=== PATIENT | female | born 1955 | race Caucasian/White ===

== ENCOUNTER → 2020-02-03 09:26 | Outpatient (CLI) | payer MEDICARE, SELFPAY ==
--- NOTE | ~2020-02-03 | DEXA_ITS ---
Bone Density Report Name: Catherine Machado Age: 65 Sex: Female Ethnicity: White Date of : 1955 Indication: postmenopausal; screening for osteoporosis; hysterectomy; Referring Provider: Paloma, Yari Study: Bone densitometry was performed. Exam Date: February 03, 2020 Accession number: [id number] Bone Density: Region BMD T-score Z-score Classification AP Spine (L1, L2) 0.931 -0.4 1.3 Normal Femoral Neck (Left) 0.747 -0.9 0.6 Normal Total Hip (Left) 0.918 -0.2 1.1 Normal Femoral Neck (Right) 0.742 -1.0 0.6 Normal Total Hip (Right) 0.894 -0.4 0.9 Normal Total Hip Mean 0.906 -0.3 1.0 Normal World Health Organization criteria for BMD impression classify patients as: Normal (T-score at or above -1.0), Osteopenia (T-score between -1.0 and -2.5), or Osteoporosis (T-score at or below -2.5). 10-year Fracture Risk: FRAX not reported because: All T-scores for Spine Total, Hip Total, Femoral Neck at or above -1.0 Clinical Information Provided by Patient: Has used the following medications: Vitamin D Has the following medical conditions: Hysterectomy Patient maximum height was 62 Menopause Age: 39 No regular weight bearing exercise Does not regularly consume dairy products Drinks caffeinated beverages Onset of menses at age 10 Number of children 2 Impression: The patient has normal bone mass. Discussion: BONE DENSITY IS ABOVE THE MINIMUM DESIRABLE LEVEL AT ALL SKELETAL SITES TESTED. This patient?s bone mineral density is above the minimum desirable level (T-score -1.0 or better) at all sites measured. The patient should follow a healthful lifestyle (good nutrition with adequate calcium and vitamin D, and appropriate weight-bearing exercise). Follow-Up: Consider repeating this study in 5 years or sooner if there is some new clinical indication. Reported by: NAYELI on 02/03/2020 9:53:00 AM. Reviewed, dictated and finalized at location AMik BUENO
== END ==
PROVIDERS: PCP Registered Nurse; Visit Provider Registered Nurse
DX: E55.9 Vitamin D deficiency, unspecified (principal); Z78.0 Asymptomatic menopausal state
CPT/HCPCS: 77080

== ENCOUNTER → 2020-06-11 08:23 | Outpatient (CLI) | payer MEDICARE, SELFPAY ==
--- NOTE | ~2020-06-11 | US_ITS ---
EXAMINATION: US right upper quadrant EXAM DATE: 06/11/2020 08:56 INDICATION: Upper back pain on right side, epigastric pain . TECHNIQUE: Multiple grayscale and Doppler images of the abdomen right upper quadrant were obtained (b y a technologist who performed the scan) and subsequently reviewed. Comparison is made to prior exami nation from 10/11/2015. FINDINGS: The pancreatic head and body are normal in appearance. The pancreatic tail is not visualized. There is echogenic liver parenchyma, hepatic steatosis. There are no focal liver lesions identified. Th ere is no evidence of intrahepatic biliary duct dilation. Portal venous flow was seen in the hepatop edal, normal direction and has normal Doppler waveform. No right-sided hydronephrosis. Common bile duct measures 4 mm, which is normal. The gallbladder wall is normal in thickness, with ex pected amount of distention. No sonographic evidence of pericholecystic fluid. There is no cholelit hiases. Technologist performing exam reports patient did not demonstrate sonographic Rush's sign. Please note that this sign is less reliable in patients who have received pain medication. IMPRESSION: 1. Hepatic steatosis. Reviewed, dictated and finalized at location A. R PRESSER IMPRESSION: 1. Hepatic steatosis.
== END ==
PROVIDERS: PCP Registered Nurse; Visit Provider Registered Nurse
DX: M54.9 Dorsalgia, unspecified (principal); R10.13 Epigastric pain; K76.0 Fatty (change of) liver, not elsewhere classified
CPT/HCPCS: 76705

== ENCOUNTER 2021-11-11 16:45 | Emergency (ER) | payer MEDICARE, SELFPAY ==
--- NOTE | ~2021-11-11 | XR_ITS ---
EXAMINATION: XR shoulder RT min 2V INDICATION: Right shoulder pain TECHNIQUE: Four views of the right shoulder are submitted. COMPARISON: None FINDINGS: There is an acute fracture involving the greater tuberosity of the right humerus. Lucency i s present in the proximal shaft of the right humerus as well, consistent with fracture plane extendin g into the humerus. 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 So ft tissues are unremarkable. IMPRESSION: 1. Acute fractures of the greater tuberosity and proximal shaft of the right humerus. Reviewed, dictated and finalized at location F. IMPRESSION: 1. Acute fractures of the greater tuberosity and proximal shaft of the right hu merus.
--- NOTE | ~2021-11-11 | XR_ITS ---
XR humerus RT DATE: 11/11/2021 17:04 INDICATION: Fall onto right humerus TECHNIQUE: AP and lateral views COMPARISON: None FINDINGS: There is suspicion of a subtle fracture of the humeral head, neck and proximal metaphyseal area. Routine right shoulder radiographs and if necessary CT right shoulder examination would be help ful for more definitive evaluation. There is normal alignment at the acromioclavicular and glenohumeral joints. IMPRESSION: Suspected subtle nondisplaced humeral head, neck and proximal metaphyseal fracture; routi ne right shoulder radiographs and possibly CT right shoulder examination would be helpful for more de finitive evaluation Reviewed, dictated and finalized at location B. IMPRESSION: Suspected subtle nondisplaced humeral head, neck and proximal metap hyseal fracture; routine right shoulder radiographs and possibly CT right shoul sharon examination would be helpful for more definitive evaluation
[2021-11-11 16:51] VITALS: BP 150/78; PULSE 81; RESP 20; TEMP 36.9; O2SAT 100
--- NOTE | 2021-11-11 16:54 | ED.UPPEXIN ---
HPI - Extremity Injury (Upper) General Chief Complaint: Extremity Injury, Upper Stated Complaint: pt requests xray right shoulder Time Seen by Provider: 11/11/21 17:11 Source: patient and RN notes reviewed Mode of arrival: ambulatory Limitations: no limitations History of Present Illness HPI narrative: 66-year-old female presents with concern for injury to her right upper arm and shoulder area. Reports just prior to arrival she tripped on a floor mat and hit her shoulder on a stair. She reports pain to the upper arm. Reports pain with movement and at rest. She denies open skin, lacerations, abrasions, bruising. She denies any distal decree sensation, strength or range of motion. MD complaint: injury to: right and arm Related Data Home Medications Medication Instructions Recorded Confirmed famotidine 20 mg tablet tablet 11/11/21 hydrochlorothiazide 25 mg tablet tablet 11/11/21 meloxicam 15 mg tablet tablet 11/11/21 pravastatin 40 mg tablet tablet 11/11/21 Allergies Allergy/AdvReac Type Severity Reaction Status Date / Time Sulfa (Sulfonamide Allergy Unknown Verified 01/31/18 17:03 Antibiotics) Review of Systems Review of Systems: CONSTITUTIONAL: Denies malaise, chills, sweats, or fever. SKIN: Denies rash or itching, open skin, laceration, abrasion, redness, warmth, swelling. MUSCULOSKELETAL: Reports left knee pain NEUROLOGIC: Denies numbness, weakness All systems reviewed & are unremarkable except as noted in HPI and below PMFSH Comments At time of signature, agree with nursing past medical, surgical, social and family history. There is no relevant family history pertinent to the presenting complaint Exam Narrative: GENERAL: Well-appearing, well-nourished, and in no acute distress. HEAD: Normocephalic, atraumatic. EYES: PERRLA, conjunctivae clear NECK: Supple. CHEST: Speaks in full sentences. No respiratory distress. HEART: Regular rate and rhythm. Normal and equal peripheral pulses. EXTREMITIES: Right shoulder has normal sensation, limited range of motion. No edema or ecchymosis. Decreased strength Normal sensation with sensitivity to light touch and pain. Lateral upper arm tenderness. No open wounds, no skin tenting, no devitalized tissue or atrophy, no trophic changes, no obvious deformity, alignment normal, nearby joints and structures intact. Distal pulses palpable and equal bilaterally, skin warm, dry, pink. Capillary refill less than 3 seconds. SKIN: Warm, dry, no rash. NEURO: Alert and oriented x3. PSYCH: Normal mood and affect Course Course Emergency Course: Will discharge patient with a short course of opiates. Went over the risks of the medication. Advised patient to not mix with other products containing acetaminophen, to not combine with alcohol, or other illicit drugs, to not drive or operate machinery, and to refrain from any activity that will require complete attention while taking this medication. Patient is aware of diagnosis, understands and agrees to treatment plan. Anticipatory guidance given. Patient agrees to follow-up as directed and is aware of reasons to seek care at the emergency department. Portions of this record may have been created with voice recognition software Level of Care: Express Care Visit Vital Signs Vital signs: Reviewed. MDM - Extremity Injury (Upper) Imaging Data My impression: Images reviewed, interpreted by radiologist, agree, see report. Radiologist's impression: XR humerus RT DATE: 11/11/2021 17:04 INDICATION: Fall onto right humerus? TECHNIQUE: AP and lateral views? COMPARISON: None? FINDINGS: There is suspicion of a subtle fracture of the humeral head, neck and proximal metaphyseal area. Routine right shoulder radiographs and if necessary CT right shoulder examination would be helpful for more definitive evaluation. There is normal alignment at the acromioclavicular and glenohumeral joints.? IMPRESSION: Suspected subtle nondisplaced hu
== END 2021-11-11 17:51 | disposition home or self-care (01) ==
PROVIDERS: Emergency Provider Nurse Practitioner; PCP Registered Nurse
DX: S42.201A Unspecified fracture of upper end of right humerus, initial encounter for closed fracture (principal); S42.251A Displaced fracture of greater tuberosity of right humerus, initial encounter for closed fracture; W01.198A Fall on same level from slipping, tripping and stumbling with subsequent striking against other object, initial encounter; E78.00 Pure hypercholesterolemia, unspecified; I10 Essential (primary) hypertension; M19.90 Unspecified osteoarthritis, unspecified site
CPT/HCPCS: 73030; 73060; 99214; A4565; G0463

== ENCOUNTER 2024-06-14 07:18 | Outpatient (CLI) | payer MEDICARE, SELFPAY ==
--- NOTE | ~2024-06-14 | DEXA_ITS ---
Bone Density Report Name: FRANNY CARTY Age: 69 Sex: Female Ethnicity: White Date of : 1955 Indication: postmenopausal; screening for osteoporosis; cancer; hysterectomy; Referring Provider: MANUELA, SEFERINO Study: Bone densitometry was performed. Exam Date: June 14, 2024 Accession number: [id number] Bone Density: Region BMD T-score Z-score Classification AP Spine(L3, L4) 1.028 -0.7 1.6 Normal Femoral Neck (Left) 0.670 -1.6 0.2 Osteopenia Total Hip (Left) 0.877 -0.5 1.0 Normal Femoral Neck (Right) 0.698 -1.4 0.5 Osteopenia Total Hip (Right) 0.900 -0.3 1.2 Normal Total Hip Mean 0.889 -0.4 1.1 Normal World Health Organization criteria for BMD impression classify patients as: Normal (T-score at or above -1.0), Osteopenia (T-score between -1.0 and -2.5), or Osteoporosis (T-score at or below -2.5). 10-year Fracture Risk(1): Major Osteoporotic Fracture 8.7% Hip Fracture 1.2% Reported Risk Factors: [place] (), Neck BMD=0.670, BMI=45.5 (1) FRAX(R) Version 3.08. Fracture probability calculated for an untreated patient. Fracture probability may be lower if the patient has received treatment. Clinical Information Provided by Patient: Has used the following medications: Vitamin D Has the following medical conditions: Cancer, Hysterectomy Patient maximum height was 62 Menopause Age: 39 No regular weight bearing exercise Drinks caffeinated beverages Onset of menses at age 10 Number of children 2 Impression: The patient has low bone mass, based on the Left Femoral Neck T-score. The patient has an estimated ten-year risk of hip fracture of 1.2% and an estimated ten-year risk of major fracture of 8.7%, based on the WHO FRAX algorithm. Discussion: BONE DENSITY IS LOW AT ONE OR MORE SKELETAL SITES. This patient's lowest T-score is low at one or more skeletal sites. It meets the World Health Organization's (WHO) criteria for ?low bone mass? (T-score between -1.0 and -2.5). The patient's 10-year risk of fracture as calculated by FRAX is less than the threshold where pharmacological therapy is recommended by the National Osteoporosis Foundation (NOF). However, all treatment decisions require clinical judgment and consideration of individual patient factors, including patient preferences, comorbidities, previous drug use, risk factors not captured in the FRAX model (e.g., frailty, falls, vitamin D deficiency, increased bone turnover, interval significant decline in bone density) and possible under or overestimation of fracture risk by FRAX. The patient should follow a healthful lifestyle (good nutrition with adequate calcium and vitamin D, and appropriate weight-bearing exercise). Follow-Up: Consider repeating this study in 2 to 3 years to reassess this patient's status, or sooner if there is some new clinical indication. Reported by: MARSHAL on 06/14/2024 7:49:00 AM. Reviewed, dictated and finalized at location [facility]
--- OUTSIDE RECORDS SUMMARY | 2024-06-14 07:24 | XMS_ITS | Encounter Summary ---
Author Organization [facility] Address [address] [place] [address]. [place], [place] [id number] [place] [id number] Care Team Providers Care Director Law Enforcement Name Role Phone Yari Dow Primary Care Provider [phone] Encounter Details Date Type Department Care Team (Late st Contact Info) Description 08/23/2021 Omnisenst Message Enc [facility] Family & Internal Medicine [facility] [address] [place] [address] Yari Dow APNP [address] [place], [place] [phone] Labs and rx Social History Tobacco Use Types Packs/Day Years Used Date Smoking Tobacco: Never Smokeless Tobacco: Never Alcohol Use Standard Drinks/Week Comments No 0 (1 standard drink = 0.6 oz pur e alcohol) AUDIT-C Answer Date Recorded Frequency of Alcohol Consumption Never 05/21/2018 Average Number of Drinks Not on file 019 Frequency of Binge Drinking Not on file 11/2018 PHQ-2 Answer Date Recorded PHQ-2 Score - If the patient scores above 3, please move on to questions 3-9 0 08/24/2020 Comments No Sex and Gender Information Value Date Recorded Sex Assigned at Not on file Legal Sex Female 9:33 PM CDT Gender Identity Not on file Sexual Orientation Not on file COVID-19 Exposure Response Date Recorded In the last 10 days, have yo u been in contact with someone who was confirmed or suspected to have Coronavirus/COVID-19? No / Unsure 08/19/2021 7:26 PM CDT documented as of this encounter Plan of Treatment Upcoming Encounters Date Type Department Care Team (Late st Contact Info) Description 06/19/2024 9:40 AM PIGMENT PUMPER Office Visit [facility] Family & Internal Medicine - [address] [phone] Yari Dow APNP [address] [place] [address] 06/28/2024 11:40 AM PIGMENT PUMPER Office Visit [facility] Multispecialty Care - [facility] [address] [facility] [place] [address] Brant Madera MD [address] [facility] [address] [place] [address] 10/04/2024 9:45 AM CDT Office Visit [facility] [phone] Shamir Lema MD [address] [facility] [address] [place] [address] documented as of this encounter Visit Diagnoses Not on filedocumented in this encounter Additional Health Concerns Assessment Noted Time PHQ-9 Depression Total Score: 3 08/25/19 21 10:19 AM CDT documented as of this encounter Care Teams Director Law Enforcement Relationship Specialty Start Date End Date Yari Dow APNP [address] [place] [id number] PCP - General NURSE PRACTITIONER 04/25/18 documented as of this encounter
--- OUTSIDE RECORDS SUMMARY | 2024-06-14 07:24 | XMS_ITS | Encounter Summary ---
Author Organization [facility] Address [address] [place] [address]. [place], [place] [id number] [place] [address] Care Team Providers Care Automatic Beam Warper Tender Name Role Phone Yari Dow Primary Care Provider [phone]- [phone] Encounter Details Date Type Department Care Team (Late st Contact Info) Description 06/24/2022 Deltagent Message Enc [facility] Family & Internal Medicine [facility] [address] [place] [address] Yari Dow APNP [address] [place], [place] [phone] [place] Social History Tobacco Use Types Packs/Day Years [...] suspected to have Coronavirus/COVID-19? No / Unsure 06/24/2022 1:20 PM TANK CLEANER documented as of this encounter Plan of Treatment Upcoming Encounters Date Type Department Care Team (Late st Contact Info) Description 06/19/2024 9:40 AM TANK CLEANER Office Visit [facility] Family & Internal Medicine - [address] [phone] Yari Dow APNP [address] [place] [address] 06/28/2024 11:40 AM TANK CLEANER Office Visit [facility] Multispecialty Care - [facility] [address] [facility] [place] [phone] Brant Madera MD [address] [facility] [address] [place] [address] 10/04/2024 9:45 AM CDT Office Visit [facility]-[address] [phone] Shamir Lema MD [address] [facility] [address] [place] [address] documented as of this encounter Visit Diagnoses Not on filedocumented in this encounter Additional Health Concerns Assessment Noted Time PHQ-9 Depression Total Score: 3 08/25/19 21 10:19 AM CDT documented as of this encounter Care Teams Automatic Beam Warper Tender Relationship Specialty Start Date End Date Yari Dow APNP [address] [place] [id number] PCP - General NURSE PRACTITIONER 04/25/18 documented as of this encounter
--- OUTSIDE RECORDS SUMMARY | 2024-06-14 07:24 | XMS_ITS | Data Portability ---
Author Organization [facility] [place] Address [address] [place] [address] Assessment Encounter Date Assessment Date Assessment LastModified by Organization Details LastModified Time 01/23/2020 01/23/2020 Annual gynecological exam performed. Patient will come back in a year unless there are new symptoms. [email or web address] Not available 01/23/2020 12:16:24 Plan of Treatment Reminders Order Date Submit Date Provider Last Modified By Organization Details Last Modified Time Details Appointments None recorded. Lab None recorded. Referral None recorded. Procedures None recorded. Surgeries None recorded. Imaging DEXA, axial skeleton + vertebral fracture assessment 2019 09 020 [facility], [address], [place], [address], 0 09:34:32 Medication Orders None recorded. Patient TargetsNo targets recorded. Patient Instructions Encounter Date Encounter Id Patient Instructions Last Modified By Organization Details Last Modified Time 01/23/2020 [id number] [email or web address] Not available 13:01:23 Reason for Referral None Reported. Results Created Date Observation Date Name Description Value Unit Range Abnormal Flag Note LastModifiedBy Organization Detail LastModifiedTime 02/05/20 20 02/03/2020 DEXA, axial skele ton + verte bral fract ure asses sment No observ ation record ed. [facility]ran [facility] [address], [place], [address], 02/05/2020 16:11:51 Result Notes None recorded. Procedures Surgical History Date Name Laterality Status Provider Name and Address Organization Details Recorded Time Total Hysterectomy completed Loan Triana [facility] 01/23/2020 12:19:10 Ovarian Cystectomy completed [facility] 01/23/2020 12:19:17 total knee replacement completed [facility] 01/23/2020 12:19:25 Imaging Results Imaging Date Name Status LastModified by Organiz ation Details LastModified Time 02/03/2020 DEXA, axial skeleton + vertebral fracture assessment completed [facility] [address], [place], [address], 02/05/2020 16:11:51 Procedure Notes None recorded. Medical Equipment None Reported. Allergies Allergen ID Allergen Name Allergen Category Reaction Reaction Severity Criticality Documentation Date Start Date Code Code System Note Provider Name and Address Organization Details Recorded Time 1988 Substance with sulfonami de structure and antibacte rial mechanism of action (substanc e) medicatio n Not available Not available Not available 01/23/2020 40014 8003 SNOMED Loan Triana [facility] 0 12:16:53 Medications Name Sig Start Date Stop Date Status Note LastModified by Organization Details LastModified Time atorvastatin 20 mg tablet active Not Available Not Available No t Available hydrocodone 5 mg-acetaminophen 325 mg tablet 01/22 completed Not Available Not Available Not Available hydroxychloroqui ne 200 mg tablet active Not Available Not Avail able Not Available methylprednisolo ne 4 mg tablets in a dose pack 01/22 completed Not Available Not Available Not Available celecoxib active Not Available Not Nicole ilable Not Available D3 Plus K2 Dots active Not Available N ot Available Not Available B12 active Not Available Not Availa ble Not Available Lotemax 0.5 % eye gel drops active Not Available Not Availabl e Not Available Shingrix (PF) 50 mcg/0.5 mL intramuscular suspension, kit 01/22 completed Not Available Not Available Not Available Vitals Date Recorded Body height Body mass index (BMI) Body weight Provider Name and Address Organization Details Last Updated DateTime 01/23/2020 157.48 cm 45.9 kg/m2 877143.[address] [facility] 01/23/2020 12:25:12 Date Recorded Systolic blood pressure Diastolic blood pressure Provider Name and Address Organization Details Last Updated DateTime 01/23/2020 126 mm[Hg] 79 mm[Hg] Valeria Louis [facility] [address], [place], [address], [place] [facility] 01/23/2020 13:23:16 Social History None recorded. Functional Status None recorded. Mental Status None recorded. Family History Relationship Description Onset Age of this Age Resolved Age Notes LastModified by Organization Details LastModified Time Sister Anemia [email or web address] Not available 12:18:05 Sister Carcinoma in situ of breast [email or web address] Not available 2019 12:18:26 Paternal Grandmother Asthma [email or web address] Not available 2019 12:18:11 Maternal Aunt Carcinoma in situ of breast [email or web address] Not available 2019 12:18:26 Father Heart disease [email or web address] Not available 2019 12:18:37 Father Hypercholest erolemia [email or web address] Not available 2019 12:18:51 Father Hypertensive disorder [email or web address] Not available 2019 12:18:58 Mother Heart disease [email or web address] Not available 2019 12:18:37 Mother Hypertensive disorder [email or web address] Not available 2019 12:18:58 Brother Diabetes mellitus [email or web address] Not available 2019 12:18:43 Medical History Condition Response Arthritis Y High Cholesterol Y Gynecological History Statement/Question Response Current Control Method None Obstetrics History GPAL:G 0 P 0 0 0 0 Past Encounters Encounter ID Performer Location Encounter Start Date Encounter Closed Date Diagnosis/Indication Diagnosis SNOMED-CT Code Diagnosis ICD10 Code Diagnosis Note [id number] Valeria Louis , [facility] [address] [address] 01/23/2020 12:13:12 01/23/2020 13:06:01 Gynecologic examination 05081859 Z01.419 Take Calcium with Vitamin D 12-1500mg daily. Do monthly self breast exams. It is advised to get annual flu shot in the fall and she could obtain at [facility] or [facility] care clinic. If you haven't received the Tdap vaccine in the last 10 years you should obtain one as well. Have mammogram yearly, bone density every 2-3 years and colonoscop y every 5-10 years depending on findings and history. Engage in daily exercise of low impact aerobic exercise 45-60 minutes 4-5 times weekly. Avoid tobacco and illicit drugs as well as using moderation with alcohol intake less than 1-2 8 oz beverages daily. This lifestyle behavior pattern will lead to less health conditions and longer life span. If BMI greater than 25 weight watchers or dietary consult advised. Questions have been answered. Patient appears to understand instructio ns, but if you have any further questions call or respond to this email We discussed d/c pap due to Hx & hysterecto my per asccp unless otherwise indicated. monogamous relationsh ip 49yrs Normal pap Hx. Screening for osteoporosis [id number] Z13.820 Health Concerns Section Related Observation LastModified by Organization Detai ls LastModified Time None Recorded Concern Status LastModified by Organization Details LastModified Time None Recorded Advance Directives Directive None Recorded Payers Encounter Date Sequence Insurance Name Policy Number Policy Spangler Covered Member ID Spangler Member ID Guarantor Name 01/23/[address] [facility] (MEDICARE REPLACEMENT/A DVANTAGE - HMO) [id number] Catherine Machado [id number] Catherine Machado Notes Date Note Type Note Provider Name and Address Organization Details Recorded Time 01/23/2020 text/html Annual GYNReport ed bypatient.History: no gynecologic complaints Menstrual cycle:Post menopause. Hysterectomy for non cancer indications 1993, ovaries removed due to pelvic pain in 2013. Same partner x 49yrs. Normal pap Hx. Urinary symptoms:No hematuria; No incontinence Vulva:No genital lesion Vagina:Normal vaginal discharge Breast:No breast pain; No breast lump; No nipple discharge Sexual complaints:No sexual complaints; No pain during intercourse; Normal libido Menopausal Symptoms:No menopausal symptoms; Normal vaginal lubrication Psychological symptoms:No depression; No anxiety; No PMDD Preventive measures:Encourage self breast examination; Encourage regular exercise; Encourage no tobacco use; Encourage regular mammograms starting age 40; Mammogram performed within the past year; Up to date on colonoscopy screening; Last DExa 5yrs ago Valeria Louis, JUAN JOSE-BC [address], [place], [address], [facility] 01/23/2020 13:23:29 OBGyn Episode Ob Episode Information Episode Created Date Number of Fetuses Patient Bloodtype Patient rh Status Prepregnancy Weight lbs Domestic Partner Domestic Partner Phone Father Name Project Controls Specialist Status 01/23/20 20 1 CLOSED Fetus Data First Name Last Name Admitted to NICU Weight (g) Sex Living Outcome Pediatric Complications Fetus ID Race Codes Race Delivery Type [id number] Vaginal Delivery Husam Calculation Initial Husam Date Initial Exam Date Initial Exam Provider Initial Ultrasound Date Last Menstrual Period Date Ultra Sound Weeks Gestation 0 Eighteen To Twenty Week Husam Update Ultra Sound Date Fundal Height At Umbil Quickening Date Ultra Sound Latest Weeks Gestation Final Husam Confirmed By Final Husam Confirmed Date Final Husam Date Ultra Sound Latest Days Gestation 0 0 Menstrual History Last Menstrual Date Menses Monthly On Bcp Conception Prior Menses Frequency Hcg Plus Date Menarche Onset Age Delivery Information Delivery Date Delivery Type Labor Anesthesia Weeks Gestation Incision Type Labor Labor Length Hrs Delivered By Post Complications Tubal Sterilization Discharge Date Comments 6 Discharge Information Feeding Method Contraceptive Method Maternal HG B and HCT Levels Ob Episode Information Episode Created Date Number of Fetuses Patient Bloodtype Patient rh Status Prepregnancy Weight lbs Domestic Partner Domestic Partner Phone Father Name Project Controls Specialist Status 01/23/20 1 CLOSED Fetus Data First Name Last Name Admitted to NICU Weight (g) Sex Living Outcome Pediatric Complications Fetus ID Race Codes Race Delivery Type 4412 Vaginal Delivery Husam Calculation Initial Husam Date Initial Exam Date Initial Exam Provider Initial Ultrasound Date Last Menstrual Period Date Ultra Sound Weeks Gestation 0 Eighteen To Twenty Week Husam Update Ultra Sound Date Fundal Height At Umbil Quickening Date Ultra Sound Latest Weeks Gestation Final Husam Confirmed By Final Husam Confirmed Date Final Husam Date Ultra Sound Latest Days Gestation 0 0 Menstrual History Last Menstrual Date Menses Monthly On Bcp Conception Prior Menses Frequency Hcg Plus Date Menarche Onset Age Delivery Information Delivery Date Delivery Type Labor Anesthesia Weeks Gestation Incision Type Labor Labor Length Hrs Delivered By Post Complications Tubal Sterilization Discharge Date Comments 2 Discharge Information Feeding Method Contraceptive Method Maternal HG B and HCT Levels
--- OUTSIDE RECORDS SUMMARY | 2024-06-14 07:25 | XMS_ITS | Encounter Summary ---
Author Organization [facility] Address [address] [place] [address]. [place], [place] [address] [place] [address] Care Team Providers Care Drywall Finisher Name Role Phone Yari Dow Primary Care Provider [phone] Encounter Details Date Type Department Care Team ([facility] Contact Info) Description 03/31/2021 Pivotstreamt Message Enc [facility] Family & Internal Medicine [facility] [address] [place] [address] Yari Dow APNP [address] [place] [address] Labs Social History Tobacco Use Types Packs/Day Years [...] Exposure Response Date Recorded In the last month, have you been in contact with someone who was confirmed or suspected to have Coronavirus / COVID-19? No / Unsure 04/01/2021 7:30 PM SIGN ERECTOR documented as of this encounter Plan of Treatment Upcoming Encounters Date Type Department Care Team (Late st Contact Info) Description 06/19/2024 9:40 AM SIGN ERECTOR Office Visit [facility] Family & Internal Medicine - [place] [address] [place] [address] Yari Dow APNP [address] [place] [address] 06/28/2024 11:40 AM SIGN ERECTOR Office Visit [facility] Multispecialty Care - [facility] [address] [place] [address] Brant Madera MD [address] [place] [address] 10/04/2024 9:45 AM CDT Office Visit [facility] [address] [place] [phone] Shamir Lema MD [address] [place] [address] documented as of this encounter Visit Diagnoses Not on filedocumented in this encounter Additional Health Concerns Assessment Noted Time PHQ-9 Depression Total Score: 3 08/25/19 21 10:19 AM CDT documented as of this encounter Care Teams Drywall Finisher Relationship Specialty Start Date End Date Yari Dow APNP [address] [place] [address] PCP - General NURSE PRACTITIONER 04/25/18 documented as of this encounter
--- OUTSIDE RECORDS SUMMARY | 2024-06-14 07:25 | XMS_ITS | CONTINUITY OF CARE DOCUMENT ---
Author Name uziel triplett Address Unknown Organization [facility] Address [address] [place] [address] [address] [place] [address] Phone [phone] Care Team Providers Care Bobcat Driver/Labor Name Role Phone Scott WHITE, Francia Unavailable SALBADOR VOGEL MD Unavailable [phone] SALBADOR VOGEL MD Unavailable VITAL SIGNS Date Observation Value Provider blood pressure, diastolic 81 mm[Hg] Rashmi Humphreys blood pressure, systolic 130 mm[Hg] Kishor Humphreys FUNCTIONAL STATUS Date Observation Value Provider periodic limb movement index absent (0) Sharron Humphreys INSURANCE PROVIDERS Payer name Policy type / Coverage type Tarah vora constitution party ID AARP MEDICARE ADVANTAGE HMO-POS HMO [id number]
--- OUTSIDE RECORDS SUMMARY | 2024-06-14 07:25 | XMS_ITS | Clinical Summary ---
Author Organization [facility] Address [address] [place] [address] Phone Care Team Providers Care Fast Food Attendant Name Role Phone Yari Dow FOOD AND BEVERAGE ASSOCIATE Primary Care Provider + Allergies Active Allergy Reactions Criticality Noted Date Comments Sulfa (Sulfonamide Antibiotics) Rash Low 06/15 Medications atorvastatin (LIPITOR) 20 mg tablet Take 20 mg by mouth daily with supper. Active pulse oximetry - AMB non-monitoredIn dications:Pneum onia due to COVID-19 virus Home continuous pulse oximeter use spot checks Length of Need: 1 month Your baseline Pulse Oximeter measurement is 100% on RA If your Pulse Oximeter reading goes below 90% call [facility] at [phone] or if you are in distress, please call 911 immediately. 1 Each 0 Active famotidine (PEPCID) 20 mg tablet Take 20 mg by mouth 2 times daily as needed. 1 Active cholecalciferol , Vitamin D3, (VITAMIN D3) 25 mcg (1,000 unit) Capsule Take 3,000 Units by mouth daily. Active cyanocobalamin 1,000 mcg Tablet Take 3,000 mcg by mouth daily. 9 Active hydroCHLOROthia zide 25 mg tablet Take 25 mg by mouth daily. Active ondansetron (ZOFRAN ODT) 4 mg Tablet, Rapid Dissolve Take 1 Tablet (4 mg) by mouth every 6 hours as needed for Nausea/Emesis. Dissolve tablet below the tongue, then swallow with saliva. 40 Tablet 1 2 Active meloxicam 15 mg tablet Take 15 mg by mouth daily. Active Active Problems Problem Noted Date Diagnosed Date Small bowel mass 07/20/2021 Encounters Date Type Department Care Team Description 06/06/2024 External Device Data STL ABSTRACTION Provider, Abstract 06/05/2024 External Device Data STL ABSTRACTION Provider, Abstract 06/04/2024 External Device Data STL ABSTRACTION Provider, Abstract 05/28/2024 External Device Data STL ABSTRACTION Provider, Abstract 05/21/2024 External Device Data STL ABSTRACTION Provider, Abstract from Last 3 Months Immunizations Immunization Administration Dates Next Due (Minekey) COVID-19 VACCINE - EMERGENCY USE AUTHORIZATION, AD26,COV2S(PF) 0.5 ML IM SUSP 07/26/2020,07/13/2020 (PNEUMOVAX 23)(50 YRS UP) PN EUMOCOCCAL POLYSACCHARIDE (PPV23) 0.5 ML, IM 03/24/2020 (PREVNAR 13)(6 WKS UP) PNEUM OCOCCAL CONJUGATE (PCV13) 0.5 ML, IM 02/16/2019 (SHINGRIX)(50 YRS UP) ZOSTER VACCINE RECOMBINANT, 0.5 ML, IM 06/04/2019,02/16/2019 INFLUENZA VACCINE HIGH DOSE QUADRIVALENT 65 YR UP PF IM 02/01/2020 Influenza, Unspecified Formulation 02/12/2019 Social History Tobacco Use Types Packs/Day Years Used Date Smoking Tobacco: Never Smokeless Tobacco: Never Tobacco Cessation:Counseling Given: Yes Alcohol Use Standard Drinks/Week Comments Yes 0 (1 standard drink = 0.6 oz pur e alcohol) twice per month Comments No Sex and Gender Information Value Date Recorded Sex Assigned at Not on file Legal Sex Female 9:42 AM ENERGY CONSERVATION DIRECTOR Gender Identity Not on file Sexual Orientation Not on file Last Filed Vital Signs Vital Sign Reading Time Taken Comments Blood Pressure 134/64 02/06/2024 8:50 AM CDT Pulse 82 08/05/2021 1:35 PM CDT Temperature 36.6 ??C (97.9 ??F) 07/20/2021 8:33 AM CS T Respiratory Rate 18 02/06/2024 8:50 AM CDT Oxygen Saturation 97% 07/20/2021 8:33 AM ENERGY CONSERVATION DIRECTOR Inhaled Oxygen Concentration - - Weight 108.9 kg (240 lb) 02/06/2024 8:50 AM CDT Height 157.5 cm (5' 2 ) 07/04/2022 1:45 PM ENERGY CONSERVATION DIRECTOR Body Mass Index 43.9 07/04/2022 1:45 PM ENERGY CONSERVATION DIRECTOR Plan of Treatment Health Maintenance Due Date Last Done Comments Pre-Diabetes and Diabetes Screening 1954 DTAP/TDAP/TD VACCINES (1 - Tdap) 1973 FIT-DNA Q 3 years 1999 Flex Sig/CT Colonography Q 5 years 1999 RSV VACCINE (60+ or ) (1 - Risk 60-74 years 1-dose series) 2014 FIT/FOBT Q 1 year 11/13/2021 11/13/2020 INFLUENZA VACCINE (#1) 2023 , 04/12/2021, 02/01/2020, Additional history exists COVID-19 Vaccine (3 - 2023-2 5 season) 2024 07/26/2020, 07/13/2020 BREAST CANCER SCREENING 11/19/2024 11/20/19 24, 05/01/2023, 04/04/2023, Additional history exists COLORECTAL SCREENING 11/07/2029 11/08/2019 Colorectal Cancer Screening 11/07/2029 ZOSTER VACCINE Completed 06/04/2019, 02/16/2019 OSTEOPOROSIS SCREENING Completed 02/03/2020 PNEUMOCOCCAL VACCINE 65+ YEARS Completed 03/24/2020 , 02/16/2019 Medical Devices Implanted Type Area Offset Pressman Device Identifier Shelf Expiration Date Model / Serial / Lot Clip Hemolok Lrg [id number] - Csc - [id number] Implanted:Qty : 1 on 12/31/2020 by Rubén Garduno MD at [facility] Clip Left: Abdomen TELEFLEX- WECK CLOSURE SYS 09/10/2025 [id number] / / [id number] Hemostatic Surgicel 4x8in 1952 - [id number] Implanted:Qty : 1 on 12/31/2020 by Rubén Garduno MD at [facility] Hemostatic Left: Abdomen J&J- [employer] 02/11/20251951 / / [id number] Hemostat Surg Snow 2x4in 2081 - [id number] Implanted:Qty : 1 on 07/19/2021 by Mino Salazar DO at [facility] Hemostatic N/A: Abdomen J&J- [employer] [id number] 04/13/2023 2082 / / [id number] Ltkr,Lumbar Fusion Procedures Procedure Name Priority Date/Time Associated Diagnosis Comments POC OCCULT BLOOD 1 CARD Stat 11/13/2020 5:51 AM CDT from Last 3 Months or Most Recently Relevant to Health Maintenance Results * POC OCCULT BLOOD 1 CARD (11/13/2020 5:51 AM CDT) [facility] Signature OCCULT BLOOD 1 CARD POC Negative Negative 11/13/2020 5:51 AM CDT [facility] WHEEL ASSEMBLER NAME POC SHANNA COATS 11/13/2020 5:51 AM CDT [facility] Stool STOOL SPECIMEN / Unknown 11/13/2020 5:51 AM CDT 11/16/2020 8:46 AM CDT us Interface Provider Poct POINT OF CARE TESTING Fi nal Result [facility] CLIA# [id number] [address] [place] [address] from Last 3 Months or Most Recently Relevant to Health Maintenance Insurance RX OPTUM RX Member Subscriber Plan / Payer (Ef fective 2019-Present) Name:Catherine Machado Relation to Subscriber:Self Name:Catherine Machado Payer ID:Not on file Group ID:[id number] Type:RX Medicare Part D Address: [place] Advance Directives For more information, please contact: [phone] Documents on File Type Date Recorded Patient Director Child Expl anation Advance Directive POA 12/31/2020 5:30 AM A dvance Directive POA Advance Directive Living Will 12/31/2020 5:29 AM Advance Directive Living Will * Full Code (Latest Code Status on File) Date Activated Date Inactivated Comments 07/19/2021 11:59 AM 07/20/2021 3:37 PM * Full Code Date Activated Date Inactivated Comments 07/19/2021 6:13 AM 07/19/2021 11:59 AM * Full Code Date Activated Date Inactivated Comments 12/31/2020 11:58 AM 01/02/2021 3:17 PM * Full Code Date Activated Date Inactivated Comments 12/31/2020 6:00 AM 12/31/2020 11:56 AM Care Teams Fast Food Attendant Relationship Specialty Start Date End Date Yari Dow NP [facility] [place] [address] PCP - General NURSE PRACTITIONER 04/27/20
--- OUTSIDE RECORDS SUMMARY | 2024-06-14 07:25 | XMS_ITS | Clinical Summary ---
Author Organization [facility] Address [address] [place] [address] Care Team Providers Care Emergency Department Rn Name Role Phone Unavailable Primary Care Provider Unavailabl e Source Comments [facility],non-owned Affiliates and Associated Physician Practices is amultiple site organization consisting of ambulatory clinics and hospital sitesin [place], [place], [place] and [place]. This disclosure is being madepursuant to the Care Everywhere program and may not contain all information available regarding this patient. Last updated 18.[facility] Allergies Active Allergy Reactions Criticality Noted Date Comments Sulfa Drugs 03/13/2017 does not remember reaction(been 2o years) Medications * Be aware that medications may not be up to date on this document. Alwaysverify current medications with the patient. Medication Sig Dispensed Refills Start Date End Date Status omeprazole (PRILOSEC) 40 MG capsule Take 40 mg by mouth daily with dinner Active atorvastatin (LIPITOR) 20 MG tablet Take 20 mg by mouth daily with dinner Active celecoxib (CELEBREX) 200 MG capsule Take 200 mg by mouth daily with dinner Active ibuprofen (MOTRIN) 200 MG tablet Take by mouth every 6 hours as needed for Pain Active Social History Tobacco Use Types Packs/Day Years Used Date Smoking Tobacco: Never Smokeless Tobacco: Never Sex and Gender Information Value Date Recorded Sex Assigned at Not on file Gender Identity Not on file Sexual Orientation Not on file Last Filed Vital Signs Vital Sign Reading Time Taken Comments Blood Pressure 156/86 03/13/2017 9:12 AM CDT Pulse 92 03/13/2017 9:12 AM CDT Temperature - - Respiratory Rate 16 03/13/2017 9:12 AM CDT Oxygen Saturation 97% 03/13/2017 9:12 AM CDT Inhaled Oxygen Concentration - - Weight - - Height - - Body Mass Index - - Plan of Treatment Health Maintenance Due Date Last Done Comments BONE DENSITY TESTING 1955 COLOGUARD (AGES 45-75) - COL ON CA SCREENING 1954 COLON MONITORING 1954 COLONOSCOPY - COLON CA SCREENING 1954 CT COLONOGRAPHY - COLON CA SCREENING 1955 Colorectal Cancer Screening 1954 FIT - COLON CA SCREENING 1954 FLEX SIG - COLON CA SCREENING 1955 MAMMOGRAM 1954 HEPATITIS C SCREENING 01/11/1972 DTAP/TDAP/TD VACCINES (1 - Tdap) 1973 PNEUMOCOCCAL VACCINE 50+ (1 of 1 - PCV) 01/16/2004 ZOSTER VACCINE (1 of 2) 01/16/2004 COVID-19 VACCINE ( - 2023-2 5 season) 2024 INFLUENZA VACCINE (#1) 2024 DEPRESSION SCREENING 05/15/2024 Respiratory Syncytial Virus (RSV) Vaccine Pt: or over 60 yrs (1 - 1-dose 75+ series) 2029 HEPATITIS B VACCINE Aged Out No longe r eligible based on patient's age to complete this topic HIB VACCINE Aged Out No longer eligi ble based on patient's age to complete this topic HPV VACCINE Aged Out No longer eligi ble based on patient's age to complete this topic MENINGOCOCCAL (Group B) VACCINE Aged Out No longer eligible based on patient's age to complete this topic MENINGOCOCCAL VACCINE Aged Out No alicia dangelo eligible based on patient's age to complete this topic
--- OUTSIDE RECORDS SUMMARY | 2024-06-14 07:25 | XMS_ITS | Referral Summary ---
Author Organization [facility] Address [address] [place] [address] Care Team Providers Care Insurance Sales Representative Name Role Phone Unavailable Primary Care Provider Unavailabl e Source Comments [facility],non-owned Affiliates and Associated Physician Practices is amultiple site organization consisting of ambulatory clinics and hospital sitesin [place], [place] and [place]. This disclosure is being madepursuant to the Care Everywhere program and may not contain all information available regarding this patient. Last updated 18.[facility] Allergies Active Allergy Reactions Criticality Noted Date [...] Mass Index - - Plan of Treatment Not on file Catherine Machado Personal/Family Self 1955 [facility] [place] [address]
--- OUTSIDE RECORDS SUMMARY | 2024-06-14 07:25 | XMS_ITS | Data Portability ---
Author Organization [facility], Main Office Address [address] [place] [address] Care Team Providers Care Binding Cutter Synthetic Cloth Name Role Phone SEFERINO ROY Primary Care Provider SEFERINO ROY Referring Provider Assessment Encounter Date Assessment Date Assessment LastModified by Organization Details LastModified Time 12/30/2022 12/30/2022 Impression: Patient has severe medial compartment osteoarthritis in her right knee. We have been putting off knee replacement until she could get her BMI down to 40. She has made good progress since she started Ozempic once a week. She is right at a BMI of 40 currently in is still losing weight. She would like to schedule right knee replacement surgery. I explained that she will need to stop the Ozempic does a week before surgery in other words she should not take the dose during the week before surgery or she will have a stomach full of food on the day of surgery which can cause aspiration. I reviewed risks of surgery with her in detail. I reminded her that she will have numbness lateral to the incision. Interestingly she does not have numbness lateral to the incision in her left knee. I explained that patients have difficulty kneeling after knee replacement surgery. We discussed that some patients have anterior knee sensitivity chronically after knee replacement. Risk of infection was reviewed. She is at higher risk for infection because of her extreme obesity and we would give her 10 days of oral antibiotics after surgery to mitigate that risk. She has no problems with teeth currently. I reminded her that I prefer my patients take antibiotics before dental work After knee replacement. Risk of blood clot problems and pulmonary emboli discussed. I discussed my preference for using Eliquis for 2 weeks followed by baby aspirin placed in for 4 additional weeks after surgery. She has no personal or family history of DVT. Risks of complications with the knee replacement such as loosening wear instability stiffness and fracture were discussed with the possible need for revision surgery during her lifetime. In someone with extreme obesity his lungs there is no deformity in the patella I would tend to leave this on resurfaced to decrease her risk of patellar fracture. We did not resurface the patella on the other side she has done very well with. Risk of nerve injury bleeding and transfusion discussed. Risks of medical complications such as heart attack stroke pulmonary embolism and reviewed. She has no history of any heart problems. The she has a history of elevated cholesterol. She does not have hypertension is never smoked. Her parents had problems with high blood pressure and heart disease mother had history of stroke past. Patient has allergy to sulfa. I would plan to use meloxicam after surgery as part of the pain control regimen at 7.5 mg daily and hopefully we can get her off this very soon so does not put undue stress on her remaining kidney. We will plan to use Toradol in the injection but avoid additional postoperative sources. Renal safety of IV Toradol has been demonstrated when used following donor nephrectomy She was given the efw-suhl info handout on total knee arthroplasty for review. We will proceed with scheduling surgery. 40 minutes were spent in total care this patient with more than half the time spent in [id number] care. [email or web address] Not available 01/01/2023 22:16:20 02/08/2023 02/08/2023 HPI: Patient returns. She is here for our follow-up of her right total knee arthroplasty. She is 2 weeks out. She has 1 more dose of Eliquis tonight. She has finished up her antibiotics. Overall she is having very mild discomfort. She is using the oxycodone intermittently. She still taking the Tylenol. She is doing outpatient therapy. Physical exam: Patient's incision is well healed. Dressing was removed. She has some mild ecchymosis in the lower leg but no swelling in the lower leg. Range of motion is from 2-100 degrees be in no increased swelling in either lower extremity. She is walking with a walker. Impression: Patient is doing well following her right total knee arthroplasty. She will transition to the baby aspirin once the Eliquis is done. I refilled her pain pills today. She transition to the cane as her comfort allows. We will see her back in a couple weeks for re-evaluation. Not available 02/08/2023 10:55:33 02/20/2023 02/20/2023 HPI: Patient returns. She is 1 month out from right total knee arthroplasty. She continues do well. She is only taking the narcotics at night to sleep. She still is on the baby aspirin twice a day. She is doing outpatient therapy at [facility]. She is walking with a cane at this point. Physical exam: Patient's incision is well healed. Very minimal effusion in the knee. No increased swelling in either lower extremity. Range of motion is from 5-125 degrees. Impression: Patient is 1 month out right total knee arthroplasty. I encouraged her to work a lot harder on her extension. Her left total knee comes out fully and we would want her to have the full extension on the right as she has a left so that would make her legs feel equal length. I discussed with her using the chair exercise work on her extension. Flexion overall is doing very well. We will see her back in 2 weeks. She remains on a baby aspirin till then. Not available 02/20/2023 14:22:04 03/06/2023 03/06/2023 HPI: Patient returns. She is 6 weeks out from right total knee arthroplasty. She continues do very well. She is having minimal to no pain or discomfort in the knee. She has been out and able be more active his last couple weeks. Physical exam: Patient is walking well today without assistance. Incision is well healed. Range motion is from 5-125 degrees. Passively I can get her to about 2 or 3?? shy of full extension. No increased swelling in either lower extremity. Excellent stability in both flexion and extension. Impression: Patient is 6 weeks out right total knee arthroplasty. I encouraged her to continue work hard on her range of motion especially with her extension. She is going to continue with outpatient therapy. She will stop the baby aspirin twice a day at this point. We will see her in 3 weeks re-evaluation. Not available 03/06/2023 15:18:59 03/27/2023 03/27/2023 HPI: Patient returns. She is now approximately 9 weeks out from right total knee arthroplasty. She is doing very well. She states last weekend she went shopping for an hour and half was on her feet the entire time and had no symptoms at all in the knee. She is very happy with her knee replacement. Physical exam: Patient's incision is well healed. She is walking well without limp or assistance. Range of motion is from 2-135 degrees. Impression: Patient doing well 9 weeks out from right total knee arthroplasty. I continued to encourage her to work on her extension he last little bit. Her other knee straightens completely out to 0 and think she would be better served to have both of them having full extension. She is going to continue with her exercises. I recommended that she continue with her home exercise program least for the next 6 months. We will see her back at her 1 year anniversary or sooner if she has problems. Not available 03/27/2023 17:17:19 Plan of Treatment Reminders Order Date Submit Date Provider Last Modified By Organization Details Last Modified Time Details Appointments None recorded. Lab None recorded. Referral None recorded. Procedures None recorded. Surgeries None recorded. Imaging XR, knee 2022 023 [email or web address] [facility], [facility] [facility] [address], [place], [address], 17:10:31 Medication Orders oxycodone 5 mg tablet 2022 023 [email or web address] [facility] [address], [place], [address], 16:40:20 Patient TargetsNo targets recorded. Patient InstructionsNo instructions recorded. Reason for Referral None Reported. Results Created Date Observation Date Name Description Value Unit Range Abnormal Flag Note LastModifiedBy Organization Detail LastModifiedTime 01/13/2001/12/2023 CBC/C OMPLE TE BLD COUNT W/DIF F white blood cells 5.1 x10'3 /uL 4.2-10 .8 Not Available [facility] (Lab) [address] [place], [address], 01/12/2023 14:28:41 01/13/2001/12/2023 CBC/C OMPLE TE BLD COUNT W/DIF F red blood cells 4.31 x10'6 /uL 3.80-5 .20 Not Available [facility] (Lab) [address] [place], [address], 01/12/2023 14:28:41 01/13/20 23 01/12/2023 CBC/C OMPLE TE BLD COUNT W/DIF F hemoglobin 13.2 g/dL 12.0-1 5.6 Not Available [facility] (Lab) [address] [place], [address], 01/12/2023 14:28:41 01/13/20 23 01/12/2023 CBC/C OMPLE TE BLD COUNT W/DIF F hematocrit 40.2 % 35.7-4 5.7 Not Available [facility] (Lab) [address] [place], [address], 01/12/2023 14:28:41 01/13/20 23 01/12/2023 CBC/C OMPLE TE BLD COUNT W/DIF F mean red cell volume 93.3 fL 82.0-9 9.0 Not Available [facility] (Lab) [address] [place], [address], 01/12/2023 14:28:41 01/13/20 23 01/12/2023 CBC/C OMPLE TE BLD COUNT W/DIF F mean red cell hemoglobin 30.6 pg 27.0-3 3.0 Not Available [facility] (Lab) [address] [place], [address], 01/12/2023 14:28:41 01/13/20 23 01/12/2023 CBC/C OMPLE TE BLD COUNT W/DIF F mean RBC HGB concentratio n 32.8 g/dL 31.0-3 6.0 Not Available [facility] (Lab) [address] [place], [address], 01/12/2023 14:28:41 01/13/20 23 01/12/2023 CBC/C OMPLE TE BLD COUNT W/DIF F red cell distribution width 12.9 % 11.8-1 5.5 Not Available [facility] (Lab) [address] [place], [address], 01/12/2023 14:28:41 01/13/20 23 01/12/2023 CBC/C OMPLE TE BLD COUNT W/DIF F platelets 205 x10'3 /uL 150-40 0 Not Available [facility] (Lab) [address] [place], [address], 01/12/2023 14:28:41 01/13/20 23 01/12/2023 CBC/C OMPLE TE BLD COUNT W/DIF F mean platelet volume 10.6 fL 9.0-12 .4 Not Available [facility] (Lab) [address] [place], [address], 01/12/2023 14:28:41 01/13/20 23 01/12/2023 CBC/C OMPLE TE BLD COUNT W/DIF F neutrophils 56.6 % 39.0-7 2.0 Not Available [facility] (Lab) [address] [place], [address], 01/12/2023 14:28:41 01/13/20 23 01/12/2023 CBC/C OMPLE TE BLD COUNT W/DIF F lymphocytes 32.9 % 16.0-4 7.0 Not Available [facility] (Lab) [address] [place], [address], 01/12/2023 14:28:41 01/13/20 23 01/12/2023 CBC/C OMPLE TE BLD COUNT W/DIF F monocytes 7.0 % 5.0-12 .0 Not Available [facility] (Lab) [address] [place], [address], 01/12/2023 14:28:41 01/13/20 23 01/12/2023 CBC/C OMPLE TE BLD COUNT W/DIF F eosinophils 2.3 % 1.0-7. 0 Not Available [facility] (Lab) [address] [place], [address], 01/12/2023 14:28:41 01/13/20 23 01/12/2023 CBC/C OMPLE TE BLD COUNT W/DIF F basophils 1.0 % 0.0-2. 0 Not Available [facility] (Lab) [address] [place], [address], 01/12/2023 14:28:41 01/13/20 23 01/12/2023 CBC/C OMPLE TE BLD COUNT W/DIF F immature granulocytes 0.2 % 0.00-0 .50 Not Available [facility] (Lab) [address] [place], [address], 01/12/2023 14:28:41 01/13/20 23 01/12/2023 CBC/C OMPLE TE BLD COUNT W/DIF F neutrophils, absolute count 2.91 x10'3 /uL 1.5-8. 0 Not Available [facility] (Lab) [address] [place], [address], 01/12/2023 14:28:41 01/13/20 23 01/12/2023 CBC/C OMPLE TE BLD COUNT W/DIF F lymphocytes, absolute count 1.69 x10'3 /uL 1.07-3 .43 Not Available [facility] (Lab) [address] [place], [address], 01/12/2023 14:28:41 01/13/20 23 01/12/2023 CBC/C OMPLE TE BLD COUNT W/DIF F monocytes, absolute count 0.36 x10'3 /uL 0.29-0 .99 Not Available [facility] (Lab) [address] [place], [address], 01/12/2023 14:28:41 01/13/20 23 01/12/2023 CBC/C OMPLE TE BLD COUNT W/DIF F eosinophils, absolute count 0.12 x10'3 /uL 0.02-0 .53 Not Available [facility] (Lab) [address] [place], [address], 01/12/2023 14:28:41 01/13/20 23 01/12/2023 CBC/C OMPLE TE BLD COUNT W/DIF F basophils, absolute count 0.05 x10'3 /uL 0.01-0 .08 Not Available [facility] (Lab) [address] [place], [address], 01/12/2023 14:28:41 01/13/20 23 01/12/2023 CBC/C OMPLE TE BLD COUNT W/DIF F immature granulocytes ,absolute 0.01 x10'3 /uL 0.00-0 .05 Not Available [facility] (Lab) [address] [place], [address], 01/12/2023 14:28:41 01/13/20 23 01/12/2023 CBC/C OMPLE TE BLD COUNT W/DIF F nucleated red blood cells 0.0 % -0 Not Available [facility] (Lab) [address] [place], [address], 01/12/2023 14:28:41 01/13/20 23 01/12/2023 CBC/C OMPLE TE BLD COUNT W/DIF F NRBC# 0.00 x10'3 /uL Not Available [facility] (Lab) [address] [place], [address], 01/12/2023 14:28:41 01/13/20 23 01/12/2023 BASIC METAB OLIC PANEL sodium 143 mmol/ L 137-14 5 Not Available [facility] (Lab) [address] [place], [address], 01/12/2023 14:44:06 01/13/20 23 01/12/2023 BASIC METAB OLIC PANEL potassium 3.8 mmol/ L 3.5-5. 1 Not Available [facility] (Lab) [address] [place], [address], 01/12/2023 14:44:06 01/13/20 23 01/12/2023 BASIC METAB OLIC PANEL chloride 109 mmol/ L 98-107 high Not Available [facility] (Lab) [address] [place], [address], 01/12/2023 14:44:06 01/13/20 23 01/12/2023 BASIC METAB OLIC PANEL carbon dioxide 26 mmol/ L 22-30 Not Available [facility] (Lab) [address] [place], [address], 01/12/2023 14:44:06 01/13/20 23 01/12/2023 BASIC METAB OLIC PANEL anion gap 11.8 mmol/ L 14-22 low Not Available [facility] (Lab) [address] [place], [address], 01/12/2023 14:44:06 01/13/20 23 01/12/2023 BASIC METAB OLIC PANEL glucose 121 mg/dL 70-99 high Not Available [facility] (Lab) [address] [place], [address], 01/12/2023 14:44:06 01/13/20 23 01/12/2023 BASIC METAB OLIC PANEL BUN 11 mg/dL 8-19 Not Available [facility] (Lab) [address] [place], [address], 01/12/2023 14:44:06 01/13/20 23 01/12/2023 BASIC METAB OLIC PANEL creatinine 0.96 mg/dL 0.66-1 .25 Not Available [facility] (Lab) [address] [place], [address], 01/12/2023 14:44:06 01/13/20 23 01/12/2023 BASIC METAB OLIC PANEL GFR 58 Refer ence Range : Star ge GFR Healt hy Adult : >60 mL/mi n/1.7 3 m2 Chron ic Kidne y Disea se: 15-60 mL/mi n/1.7 3 m2 Kidne y Failu re: <15/m L/min /1.73 m2 www.n iddk. [facility] [[email or web address]g ov The MDRD study equat ion has not been valid ated in child yuan <18 years of age; pregn ant women ; the elder ly >85 years of age; or in some racia l or ethni c subgr oups, such as Hispa nics. Outsi de the valid ated amee eters , estim ated GFR is less accur ate, requi ring clini ramirez judgm ent on a case- by-ca se basis . Clini ramirez inter preta tion for other races and ages must be made by the clini dolly. The MDRD study equat ion has not been valid ated for the evalu ation of serum creat inine relat ed to nutri claudia l statu s or medic ation usage . For perso ns <18 years of age, a pedia tric GFR calcu lator is avail able on the [facility] websi te: https ://sony allan.jackelin jimenes.o rg/pr clint ramosal s/kdo qi/gf r_cal culat or Not Available [facility] (Lab) [address] [place], [address], 01/12/2023 14:44:06 01/13/2001/12/2023 BASIC METAB OLIC PANEL calcium 9.7 mg/dL 8.4-10 .2 Not Available [facility] (Lab) [address] [place], [address], 01/12/2023 14:44:06 01/13/20 23 01/12/2023 TYPE AND SCREE N patient ABO group and Rh A POSITI VE Not Available [facility] (Lab) [address] [place], [address], 01/12/2023 15:24:40 01/13/20 23 01/12/2023 TYPE AND SCREE N patient antibody screen NEGATI VE Not Available [facility] (Lab) [address] [place], [address], 01/12/2023 15:24:40 01/13/20 23 01/12/2023 MRSA/ STAPH AUREU S, NASAL , PCR MRSA, nasal NEGATI VE Not Available [facility] (Lab) [address] [place], [address], 01/12/2023 16:36:45 01/13/20 23 01/12/2023 MRSA/ STAPH AUREU S, NASAL , PCR staph aureus, nasal NEGATI VE Not Available [facility] (Lab) [address] [place], [address], 01/12/2023 16:36:45 01/26/20 23 01/25/2023 CBC W/O DIFFE RENTI AL white blood cells 8.7 x10'3 /uL 4.2-10 .8 Not Available [facility] (Lab) [address] [place], [address], 01/25/2023 07:25:31 01/26/20 23 01/25/2023 CBC W/O DIFFE RENTI AL red blood cells 3.56 x10'6 /uL 3.80-5 .20 low Not Available [facility] (Lab) [address] [place], [address], 01/25/2023 07:25:31 01/26/20 23 01/25/2023 CBC W/O DIFFE RENTI AL hemoglobin 10.9 g/dL 12.0-1 5.6 low Not Available [facility] (Lab) [address] [place], [address], 01/25/2023 07:25:31 01/26/20 23 01/25/2023 CBC W/O DIFFE RENTI AL hematocrit 33.3 % 35.7-4 5.7 low Not Available [facility] (Lab) [address] [place], [address], 01/25/2023 07:25:31 01/26/2001/25/2023 CBC W/O DIFFE RENTI AL mean red cell volume 93.5 fL 82.0-9 9.0 Not Available [facility] (Lab) [address] [place], [address], 01/25/2023 07:25:31 01/26/2001/25/2023 CBC W/O DIFFE RENTI AL mean red cell hemoglobin 30.6 pg 27.0-3 3.0 Not Available [facility] (Lab) [address] [place], [address], 01/25/2023 07:25:31 01/26/2001/25/2023 CBC W/O DIFFE RENTI AL mean RBC HGB concentratio n 32.7 g/dL 31.0-3 6.0 Not Available [facility] (Lab) [address] [place], [address], 01/25/2023 07:25:31 01/26/2001/25/2023 CBC W/O DIFFE RENTI AL red cell distribution width 13.1 % 11.8-1 5.5 Not Available [facility] (Lab) [address] [place], [address], 01/25/2023 07:25:31 01/26/2001/25/2023 CBC W/O DIFFE RENTI AL platelets 181 x10'3 /uL 150-40 0 Not Available [facility] (Lab) [address] [place], [address], 01/25/2023 07:25:31 01/26/20 23 01/25/2023 CBC W/O DIFFE RENTI AL mean platelet volume 10.8 fL 9.0-12 .4 Not Available [facility] (Lab) [address] [place], [address], 01/25/2023 07:25:31 01/26/2001/25/2023 BASIC METAB OLIC PANEL sodium 138 mmol/ L 137-14 5 Not Available [facility] (Lab) [address] [place], [address], 01/25/2023 07:54:23 01/26/2001/25/2023 BASIC METAB OLIC PANEL potassium 4.1 mmol/ L 3.5-5. 1 Not Available [facility] (Lab) [address] [place], [address], 01/25/2023 07:54:23 01/26/2001/25/2023 BASIC METAB OLIC PANEL chloride 107 mmol/ L 98-107 Not Available [facility] (Lab) [address] [place], [address], 01/25/2023 07:54:23 01/26/2001/25/2023 BASIC METAB OLIC PANEL carbon dioxide 26 mmol/ L 22-30 Not Available [facility] (Lab) [address] [place], [address], 01/25/2023 07:54:23 01/26/2001/25/2023 BASIC METAB OLIC PANEL anion gap 9.1 mmol/ L 14-22 low Not Available [facility] (Lab) [address] [place], [address], 01/25/2023 07:54:23 01/26/2001/25/2023 BASIC METAB OLIC PANEL glucose 102 mg/dL 70-99 high Not Available [facility] (Lab) [address] [place], [address], 01/25/2023 07:54:23 01/26/2001/25/2023 BASIC METAB OLIC PANEL BUN 11 mg/dL 8-19 Not Available [facility] (Lab) [address] [place], [address], 01/25/2023 07:54:23 01/26/2001/25/2023 BASIC METAB OLIC PANEL creatinine 1.04 mg/dL 0.66-1 .25 Not Available [facility] (Lab) [address] [place], [address], 01/25/2023 07:54:23 01/26/2001/25/2023 BASIC METAB OLIC PANEL GFR 53 Refer ence Range : Star ge GFR Healt hy Adult : >60 mL/mi n/1.7 3 m2 Chron ic Kidne y Disea se: 15-60 mL/mi n/1.7 3 m2 Kidne y Failu re: <15/m L/min /1.73 m2 www.n iddk. nih.g ov The MDRD study equat ion has not been valid ated in child yuan <18 years of age; pregn ant women ; the elder ly >85 years of age; or in some racia l or ethni c subgr oups, such as Hisoh nics. Outsi de the valid ated amee eters , estim ated GFR is less accur ate, requi ring clini ramirez judgm ent on a case- by-ca se basis . Clini ramirez inter preta tion for other races and ages must be made by the clini dolly. The MDRD study equat ion has not been valid ated for the evalu ation of serum creat inine relat ed to nutri claudia l statu s or medic ation usage . For perso ns <18 years of age, a pedia tric GFR calcu lator is avail able on the [facility] websi te: https ://sony jimenes.o rg/pr ofess ional s/kdo qi/gf r_cal culat or Not Available [facility] (Lab) [address] [place], [address], 01/25/2023 07:54:23 01/26/20 23 01/25/2023 BASIC METAB OLIC PANEL calcium 9.2 mg/dL 8.4-10 .2 Not Available [facility] (Lab) [address] [place], [address], 01/25/2023 07:54:23 01/25/20 23 01/24/2023 XR, knee, 1 or 2 view [facility] [address] [facility] [place] [address] Patien t Name: FRANNY MACHADO Access ion #: [id number] Sex: F : 1954 8 Dictat ed By: Shad Castro Attend ing Physic lacey: WAQAR PACKER Orderi ng Physic lacey: WAQAR PACKER Exam Date: 2022 10:11 AM Exam Name: XR KNEE RT 2V Admitt ing Diagno sis(es ): HISTOR Y: COMPAR YOSELIN:n one FINDIN GS: Joint replac ement is seen with overal l preser vation of normal alignm ent. No abnorm al lucenc y is seen around the hardwa re. IMPRES NADINE: Joint replac ement withou t hardwa re compli cation Electr onical ly Signed by: Shad Castro at 2022 14:53: 10 PM Page 1 [email or web address] [facility] (Imaging) [address] [place], [address], 01/24/2023 16:08:38 03/06/20 23 XR, knee No observ ation record ed. [facility] [address], [place], [address], 03/06/2023 15:17:44 07/12/19 24 01/12/2023 elect mira blackmongr am No observ ation record ed. [email or web address] Not Available 2023 14:20:44 Result Notes None recorded. Problems Name Problem SNOMED Code Status Onset Date Resolution Date Notes Provider Name and Address Organization Details Recorded Time Benign paroxysma l positiona l vertigo 882806139 Active Not Available [facility] 3 16:30:19 Pain of right shoulder joint [id number] 459574 Active 2021 Not Available [facility] 3 16:30:19 Heartburn 03727631 Active 2017 Not Available [facility] 3 16:30:19 Urinary incontine nce 624450267 Active Not Available [facility] 3 16:30:19 On examinati on - initial high BP Active 2016 Not Available [facility] 3 16:30:19 Gastroeso phageal reflux disease 974554403 Active Not Available [facility] 3 16:30:19 Morbid obesity 140365387 Active Not Available [facility] 3 16:30:19 Osteoarth ritis of knee 788184734 Active Not Available [facility] 3 16:30:20 Shoulder joint pain 438291616 Active Not Available [facility] 3 16:30:20 Enthesopa thy of hip region 22421874 Active Not Available [facility] 3 16:30:20 Knee pain Active Not Available [facility] 3 16:30:20 Pain in right hip joint 64200763151 9102 Active 2021 Not Available [facility] 3 16:30:20 Trochante aurelio bursitis of left hip 38337855640 9103 Active 2021 Not Available [facility] 3 16:30:20 Vitamin D deficienc y 28509003 Active Not Available [facility] 3 16:30:20 Depressiv e disorder 11677592 Active Not Available [facility] 3 16:30:20 Arthritis 2857176 Active 2017 Not Available [facility] 3 16:30:20 Osteoarth ritis 310746498 Active Not Available [facility] 3 16:30:20 Vertigo 904688993 Completed 201706/23/2017 Not Available [facility] [facility] 3 16:30:20 Dizziness 075652132 Active 2017 Not Available [facility] 3 16:30:20 Obesity 705097418 Active Not Available [facility] 3 16:30:20 Closed fracture of upper end of humerus 22471756 Active 2021 Not Available [facility] 3 16:30:20 Pain of right knee joint 18359499248 4100 Active 2021 Not Available [facility] 3 16:30:21 Peroneal tendiniti s 85926282 Active 2017 Not Available [facility] 3 16:30:21 Peroneal tendiniti s 09912321 Active 2017 Not Available [facility] 3 16:30:21 Hyperlipi demia 87604461 Active Not Available [facility] 3 16:30:21 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 Procedures Surgical History Date Name Laterality Status Provider Name and Address Organization Details Recorded Time Spinal Fusion completed Not Available [facility] 07/13/2022 16:29:33 Hysterectomy completed Not Available [facility] 07/13/2022 16:29:33 total knee replacement completed Not Available [facility] 07/13/2022 16:29:33 Imaging Results Imaging Date Name Status LastModified by Organization Details LastModified Time 01/24/2023 XR, knee, 1 or 2 view completed [email or web address] [facility] ([facility]) [address], [place], [address], 01/24/2023 16:08:38 03/06/2023 XR, knee completed [facility] [address], [place], [address], 03/06/2023 15:17:44 01/12/2023 electrocardiogram completed [email or web address] Informa tion not available 07/12/2023 14:20:44 Procedure Notes None recorded. Medical Equipment None Reported. Allergies Allergen ID Allergen Name Allergen Category Reaction Reaction Severity Criticality Documentation Date Start Date Code Code System Note Provider Name and Address Organization Details Recorded Time 29534 Substance with sulfonami de structure and antibacte rial mechanism of action (substanc e) medicatio n vomiting Not available Not available 07/13/2022 [id number] SNOMED Not Available [facility] 16:31:41 Medications Name Sig Start Date Stop Date Status Note LastModified by Organization Details LastModified Time celecoxib 200 mg capsule TAKE 1 CAPSULE BY MOUTH ONCE DAILY active Not Available Not Available No t Available amoxicillin 500 mg capsule TAKE FOUR CAPSULES BY MOUTH ONE HOUR BEFORE APPOINTME NT active Not Available Not Available No t Available doxycycline hyclate 100 mg capsule TAKE 1 CAPSULE BY MOUTH TWICE DAILY 02/20 completed Not Available Not Available Not Available paroxetine 10 mg tablet Take 1 tablet every day by oral route for 30 days. 06/16 completed Not Available Not Available Not Available cefuroxime axetil 250 mg tablet TAKE 1 TABLET BY MOUTH TWICE DAILY FOR 10 DAYS 11/19 completed Not Available Not Available Not Available atorvastati n 20 mg tablet TK 1 T PO QD 12/20 completed Not Available Not Available Not Available azithromyci n 250 mg tablet 04/13 completed Not Available Not Available Not Available pravastatin 40 mg tablet TAKE 1 TABLET BY MOUTH NIGHTLY AT BEDTIME 11/18 completed Not Available Not Available Not Available benzonatate 200 mg capsule 04/13 completed Not Available Not Available Not Available hydrocodone 5 mg-acetamin ophen 325 mg tablet take 1 tablet PO Q 4hr PRN pain active Not Available Not Available No t Available meloxicam 15 mg tablet TAKE 1 TABLET BY MOUTH ONCE DAILY 02/08 completed Not Available Not Available Not Available ondansetron HCl 4 mg tablet Take 2 tablets 4 times a day by oral route as needed. 07/11 completed Not Available Not Available Not Available bupivacaine HCl 0.5 % (5 mg/mL) injection solution In office injection administe red by the provider 11/18 completed Not Available Not Available Not Available Pyridium 200 mg tablet Take 1 tablet 3 times a day by oral route for 3 days. 06/16 completed Not Available Not Available Not Available meclizine 12.5 mg tablet TAKE 1 TABLET BY MOUTH THREE TIMES DAILY NEEDED 11/18 completed Not Available Not Available Not Available amlodipine 2.5 mg tablet 07/11 completed Not Available Not Available Not Available metronidazo le 500 mg tablet 03/24 completed Not Available Not Available Not Available acetaminoph en 300 mg-codeine 30 mg tablet TAKE 1 TABLET BY MOUTH EVERY 6 HOURS NEEDED 12/30 completed Not Available Not Available Not Available amlodipine 5 mg tablet 11/18 completed Not Available Not Available Not Available ciprofloxac in 500 mg tablet TK 1 T PO BID FOR 5 DAYS 06/16 completed Not Available Not Available Not Available omeprazole 40 mg capsule,del ayed release TK ONE C PO QD PRN 07/11 completed Not Available Not Available Not Available tramadol 50 mg tablet 07/11 completed Not Available Not Available Not Available triamcinolo ne acetonide 0.1 % topical cream 04/13 completed Not Available Not Available Not Available amoxicillin 500 mg tablet Take 4 tablets PO 1 hour before dental procedure 2023 active Not Available Not Available Not Avai lable ketorolac 10 mg tablet TK 1 T PO BID FOR 5 DAYS 04/13 completed Not Available Not Available Not Available oxycodone-a cetaminophe n 5 mg-325 mg tablet 03/24 completed Not Available Not Available Not Available alprazolam 0.25 mg tablet Take 1 tablet every 12 hours by oral route as needed. 08/07 completed Not Available Not Available Not Available famotidine 20 mg tablet TAKE 1 TABLET BY MOUTH TWICE DAILY active Not Available Not Available No t Available estradiol 0.025 mg/24 hr weekly transdermal patch 04/13 completed Not Available Not Available Not Available prednisolon e acetate 1 % eye drops,suspe nsion 06/16 completed Not Available Not Available Not Available methocarbam ol 750 mg tablet 07/11 completed Not Available Not Available Not Available methotrexat e sodium 2.5 mg tablet TAKE 4 TABLETS BY MOUTH ONCE WEEKLY FOR 2 WEEKS THEN INCREASE TO 6 TABLETS PER WEEK 12/11 completed Not Available Not Available Not Available estradiol 0.075 mg/24 hr weekly transdermal patch 04/13 completed Not Available Not Available Not Available Kenalog 10 mg/mL suspension for injection In office injection administe red by the provider 12/30 completed [facility]: [phone]- [phone] Not Available Not Available Not Available meclizine 25 mg tablet Take 1 tablet every day by oral route as needed for 30 days. active Not Available Not Available No t Available amlodipine 10 mg tablet TAKE 1 TABLET BY MOUTH ONCE DAILY 11/18 completed Not Available Not Available Not Available benzonatate 100 mg capsule TAKE 1 CAPSULE BY MOUTH THREE TIMES DAILY NEEDED FOR COUGH 12/11 completed Not Available Not Available Not Available cephalexin 500 mg capsule TAKE 1 CAPSULE BY MOUTH TWICE DAILY FOR 10 DAYS 01/10 completed Not Available Not Available Not Available erythromyci n 5 mg/gram (0.5 %) eye ointment APPLY A SMALL AMOUNT ON EYELID TWICE A DAY DIRECTED 06/30 completed Not Available Not Available Not Available lisinopril 10 mg tablet 07/11 completed Not Available Not Available Not Available fluorometho lone 0.1 % eye drops,suspe nsion INSTILL 1 DROP INTO EACH EYE THREE TIMES DAILY. SHAKE WELL 01/10 completed Not Available Not Available Not Available losartan 25 mg tablet 07/11 completed Not Available Not Available Not Available gabapentin 300 mg capsule 07/11 completed Not Available Not Available Not Available diclofenac sodium 75 mg tablet,paulette yed release 04/13 completed Not Available Not Available Not Available folic acid 1 mg tablet TAKE 1 TABLET BY MOUTH ONCE DAILY 12/11 completed Not Available Not Available Not Available pravastatin 20 mg tablet TAKE 1 TABLET BY MOUTH NIGHTLY AT BEDTIME active Not Available Not Available No t Available hydrochloro thiazide 25 mg tablet TAKE 1 TABLET BY MOUTH ONCE DAILY IN THE MORNING DUE FOR APPOINTME NT IN APRIL, PLEASE CALL OFFICE TO SCHEDULE 11/09 completed Not Available Not Available Not Available mupirocin 2 % topical ointment APPLY TOPICALLY THREE TIME A DAY FOR 7 DAYS 01/10 completed Not Available Not Available Not Available furosemide 20 mg tablet 04/13 completed Not Available Not Available Not Available hydroxychlo roquine 200 mg tablet TAKE 2 TABLETS BY MOUTH ONCE DAILY active Not Available Not Available No t Available Anusol-HC 25 mg rectal suppository Insert 1 supposito ry twice a day by rectal route for 14 days. 11/30 completed Not Available Not Available Not Available methylpredn isolone 4 mg tablets in a dose pack TAKE BY MOUTH DIRECTED ON INSIDE OF PACKAGE active Not Available Not Available No t Available Vitamin D2 1,250 mcg (50,000 unit) capsule Take 1 capsule every week by oral route for 28 days. 06/16 completed Not Available Not Available Not Available oxybutynin chloride 5 mg tablet Take 1 tablet twice a day by oral route for 30 days. active Not Available Not Available No t Available ondansetron 4 mg disintegrat ing tablet DISSOLVE 1 TABLET IN MOUTH EVERY 6 HOURS NEEDED FOR NAUSEA AND VOMITING . DISSOLVE UNDER THE TONGUE THEN SWALLOW 11/18 completed Not Available Not Available Not Available cefdinir 300 mg capsule TAKE 1 CAPSULE BY MOUTH TWICE DAILY 06/30 completed Not Available Not Available Not Available fluticasone propionate 50 mcg/actuati on nasal spray,suspe nsion USE 2 SPRAY(S) IN EACH NOSTRIL ONCE DAILY 01/10 completed Not Available Not Available Not Available naproxen 500 mg tablet 04/13 completed Not Available Not Available Not Available diazepam 5 mg tablet 04/13 completed Not Available Not Available Not Available oxycodone 5 mg tablet TAKE 1 TABLET BY MOUTH EVERY 4 HOURS 03/27 completed Not Available Not Available Not Available enoxaparin 30 mg/0.3 mL subcutaneou s syringe 11/30 completed Not Available Not Available Not Available Pneumovax-2 3 25 mcg/0.5 mL injection syringe PHARMACIS T ADMINISTE RED IMMUNIZAT ION ADMINISTE RED AT TIME OF DISPENSIN G 08/31 completed Not Available Not Available Not Available moxifloxaci n 0.5 % eye drops INSTILL 1 DROP INTO AFFECTED EYE EVERY 2 HOURS active Not Available Not Available No t Available estradiol 0.0375 mg/24 hr weekly transdermal patch 04/13 completed Not Available Not Available Not Available Jantoven 1 mg tablet 11/30 completed Not Available Not Available Not Available Jantoven 2.5 mg tablet 11/30 completed Not Available Not Available Not Available Pain Reliever (acetaminop hen) 500 mg tablet TAKE 2 TABLETS BY MOUTH EVERY 6 HOURS MAX 8 TABLETS PER 24 HOURS 03/06 completed Not Available Not Available Not Available nitrofurant oin monohydrate /macrocryst als 100 mg capsule TAKE 1 CAPSULE BY MOUTH TWICE DAILY FOR 5 DAYS 12/30 completed Not Available Not Available Not Available trospium 20 mg tablet Take 1 tablet twice a day by oral route. active Not Available Not Available No t Available tizanidine 2 mg capsule TAKE 1 TO 2 CAPSULES BY MOUTH NIGHTLY NEEDED FOR MUSCLE SPASM 12/30 completed Not Available Not Available Not Available atorvastati n 03/06 completed Not Available Not Available Not Available Celebrex 11/19 completed Not Available Not Available Not Available lidocaine (PF) 10 mg/mL (1 %) injection solution In office injection administe red by the provider 06/30 completed [facility]: [phone]- [phone] Not Available Not Available Not Available lidocaine (PF) 5 mg/mL (0.5 %) injection solution In office injection administe red by the provider 12/20 completed Not Available Not Available Not Available OsmoPrep 1.5 gram (1.102-0.39 8) tablet 04/13 completed Not Available Not Available Not Available Prevnar 13 (PF) 0.5 mL intramuscul ar syringe PHARMACIS T ADMINISTE RED IMMUNIZAT ION ADMINISTE RED AT TIME OF DISPENSIN G 08/31 completed Not Available Not Available Not Available ropivacaine (PF) 5 mg/mL (0.5 %) injection solution In office injection administe red by the provider 12/30 completed [facility] [phone] Not Available Not Available Not Available Myrbetriq 25 mg tablet,exte nded release Take 1 tablet every day by oral route. active Not Available Not Available No t Available Lotemax 0.5 % eye gel drops INSTILL 1 DROP INTO EACH EYE 4 TIMES DAILY active Not Available Not Available No t Available Eliquis 2.5 mg tablet TAKE 1 TABLET BY MOUTH EVERY 12 HOURS ADMINISTE R FIRST POST-OP DOSE 23 HOURS AFTER PROCEDURE END TIME 02/20 completed Not Available Not Available Not Available Pennsaid 20 mg/gram/act uation (2 %) topical soln in metered-dos e pump apply TWO pumps TWICE DAILY 11/30 completed Not Available Not Available Not Available oxycodone ER 20 mg tablet,emmanuel h resistant,e xtended release 12 hr 11/30 completed Not Available Not Available Not Available Procto-Med HC 2.5 % topical cream perineal applicator APPLY RECTALLY TWO TIMES DAILY 11/18 completed Not Available Not Available Not Available Shingrix (PF) 50 mcg/0.5 mL intramuscul ar suspension, kit PHARMACIS T ADMINISTE RED IMMUNIZAT ION ADMINISTE RED AT TIME OF DISPENSIN G 08/31 completed Not Available Not Available Not Available Ozempic 0.25 mg or 0.5 mg (2 mg/1.5 mL) subcutaneou s pen injector INJECT 0.25 MG INTO THE SKIN EVERY 7 DAYS 12/30 completed Not Available Not Available Not Available Fluzone High-Dose 2018- (PF) 180 mcg/0.5 mL intramuscul ar syringe PHARMACIS T ADMINISTE RED IMMUNIZAT ION ADMINISTE RED AT TIME OF DISPENSIN G 08/31 completed Not Available Not Available Not Available Fluzone High-Dose Quad 2019- (PF) 240 mcg/0.7 mL IM syringe PHARMACIS T ADMINISTE RED IMMUNIZAT ION ADMINISTE RED AT TIME OF DISPENSIN G active Not Available Not Available No t Available Ozempic 0.25 mg or 0.5 mg (2 mg/3 mL) subcutaneou s pen injector INJECT 0.5 MG INTO THE SKIN EVERY 7 DAYS 02/08 completed Not Available Not Available Not Available Vitals Date Recorded Body height Provider Name an d Address Organization Details Last Updated DateTime 12/30/2022 157.48 cm AUGUST Cornejo [place] [facility] 12/30/2022 09:26:02 Date Recorded Body mass index (BMI) Body weight Provider Name and Address Organization Details Last Updated DateTime 12/30/2022 40.8 kg/m2 181353.1 brayan Childress [facility] 12/30/2022 09:34:06 Date Recorded Body height Provider Name an d Address Organization Details Last Updated DateTime 02/08/2023 157.48 cm Patricia Childress [facility] 02/08/2023 09:29:42 Date Recorded Body mass index (BMI) Body weight Provider Name and Address Organization Details Last Updated DateTime 02/08/2023 40.2 kg/m2 00961.32 g Patricia Childress [facility] 02/08/2023 09:32:57 Date Recorded Body height Provider Name an d Address Organization Details Last Updated DateTime 02/20/2023 157.48 cm Patricia Childress [facility] 02/20/2023 14:00:36 Date Recorded Body height Provider Name an d Address Organization Details Last Updated DateTime 03/06/2023 157.48 cm Fannie Adame [facility] 03/06/2023 14:50:24 Date Recorded Body height Provider Name an d Address Organization Details Last Updated DateTime 03/27/2023 157.48 cm Patricia Childress [facility] 03/27/2023 16:40:14 Social History Question Answer Notes LastModified by Organizat ion Details LastModified Time Tobacco Smoking Status Never Smoker Not Available [facility] 07/13/2022 16:29:31 What Is Your Level Of Alcohol Consumption? 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 08/31/2020 [id number] Information not available 07/13/2022 Sex: Unknown Functional Status None recorded. Mental Status None recorded. Family History Relationship Description Onset Age of this Age Resolved Age Notes LastModified by Organization Details LastModified Time Brother Diabetes mellitus [id number] Not available 07/13/2022 16:29:33 Father Hypertensive disorder [id number] Not available 07/13/2022 16:29:33 Father Heart disease [id number] Not available 07/13/2022 16:29:33 Mother Hypertensive disorder [id number] Not available 07/13/2022 16:29:33 Mother Heart disease [id number] Not available 07/13/2022 16:29:33 Mother Kidney disease [id number] Not available 07/13/2022 16:29:33 Sister Family history of malignant neoplasm [id number] Not available 07/13/2022 16:29:33 Notes:stroke - mother, cance r - sister, blood clots - daughter Medical History Condition Response BLINDNESS N KIDNEY STONES N MRSA N CARPAL TUNNEL SYNDROME N LUNG DISEASE/DISORDER N HISTORY OF DRUG ABUSE N COPD N RADIATION / CHEMOTHERAPY N SPORTS INJURY N ANKLE PAIN N BLOOD DISEASES N SCHIZOPHRENIA N SHINGLES N SHOULDER PAIN N DEPRESSION (INCLUDING POST ) N BOWEL PROBLEMS N STROKE/TIA N KNEE PAIN N ULCERS N BENIGN PROSTATIC HYPERPLASIA N OBESITY N GERD/NAUSEA N ANEURYSM N URINARY/BLADDER/KIDNEY PROBLEMS N CORONARY ARTERY DISEASE (CAD) N ADDICTION CONCERNS N USE OF BLOOD THINNERS N SKIN PROBLEMS N EMPHYSEMA N MUSCLE,JOINT OR BONE PROBLEMS N DVT N STOMACH ULCERS N BLOOD CLOTS N USE OF NSAIDS N CONCUSSION OR SPINAL TRAUMA N NEUROPATHY N AIDS/HIV N FRACTURES N HYPERTENSION N ELBOW PAIN N TOURETTE'S N Metal allergy N ANXIETY DISORDER N BLOOD TRANSFUSION N ANEMIA/BLOOD DISORDER N BIPOLAR DISORDER N BRONCHITIS N OSTEOARTHRITIS N TUBERCULOSIS N FOOT PROBLEM N HEART VALVE DISORDERS N ALLERGIES/HAYFEVER N SOFT TISSUE INJURY N INFECTIOUS DISEASE N HEART ARRHYTHMIA N INSOMNIA N HIGH CHOLESTEROL / HYPERLIPIDEMIA N RHEUMATOID ARTHRITIS N EDEMA N CHRONIC PAIN SYNDROME N CAROTID BLOCKAGE N BACK / NECK PROBLEMS N HAVE YOU BEEN HOSPITALIZED OR SEEN IN [facility] IN THE PAST YEAR ? N BURSITIS N HERNIATED DISC N DIALYSIS N FIBROMYALGIA N OSTEOPOROSIS N ARTHRITIS Y NO SIGNIFICANT PAST MEDICAL HISTORY N PERIPHERAL NEUROPATHY N DIABETES, TYPE N HEARTBURN / REFLUX N HEPATITIS / LIVER DISEASE N GOUT N ALZHEIMER'S DISEASE N SLEEP DISORDER N HERPES N HEADACHES/MIGRAINES N SEIZURES/EPILEPSY N VASCULAR DISEASE N Blood Disorder N HIP PAIN N DIZZINESS N HEAD TRAUMA OR INJURY N HEART DISEASE/HEART PROBLEMS N MULTIPLE SCLEROSIS N CANCER: SPECIFY Y CARDIAC ARRHYTHMIA N ANESTHESIA COMPLICATIONS N ATRIAL FIBRILLATION N AUTOIMMUNE DISEASE N Gynecological HistoryNo gynecological history recorded. Obstetrics History GPAL:G 0 P 0 0 0 0 Past Encounters Encounter ID Performer Location Encounter Start Date Encounter Closed Date Diagnosis/Indication Diagnosis SNOMED-CT Code Diagnosis ICD10 Code Diagnosis Note [id number] [facility] [address] [place] [address] 08/31/2020 00:00:00 08/31/2020 15:25:04 [id number] [facility] [address] [place] [address] 12/11/2020 00:00:00 12/11/2020 16:03:43 [id number] [facility] [address] [place] [address] 03/24/2021 00:00:00 03/24/2021 11:23:03 [id number] [facility] [address] [place] [address] 06/09/2021 00:00:00 06/09/2021 15:18:00 [id number] [facility] [address] [place] [address] 06/30/2021 00:00:00 06/30/2021 17:06:31 [id number] [facility] [address] [place] [address] 09/17/2021 00:00:00 09/17/2021 14:16:34 [id number] [facility] [place] [address] [place] [address] 11/18/2021 00:00:00 11/18/2021 15:08:50 [id number] [facility] [address] [place] [address] 12/01/2021 00:00:00 12/01/2021 10:51:54 [id number] [facility] [address] [place] [address] 12/20/2021 00:00:00 12/20/2021 17:09:47 [id number] [facility] [address] [place] [address] 01/10/2022 00:00:00 01/10/2022 16:17:36 [id number] [facility] [address] [place] [address] 02/07/2022 00:00:00 02/07/2022 14:22:57 [id number] [facility] [address] [place] [address] 03/02/2022 00:00:00 03/02/2022 15:54:20 [id number] [facility] [address] [place] [address] 06/08/2022 00:00:00 06/08/2022 15:00:46 [id number] RHIANNON Vyas [facility] [address] [place] [address] 11/09/2022 08:56:31 11/09/2022 10:07:20 Osteoarthritis of right knee joint 6047929280 06013 M17.11 [id number] Waqar Jolly MD [facility] [address] [place] [address] 12/30/2022 09:23:00 01/02/2023 10:19:41 Osteoarthritis of right knee joint 4895315459 61868 M17.11 [id number] RHIANNON Vyas [facility] [address] [place] [address] 02/08/2023 09:20:45 02/08/2023 11:02:10 History of right total knee replacement 2369601098 [id number] Z96.342 [id number] RHIANNON Vyas [facility] [address] [place] [address] 02/20/2023 13:53:44 02/20/2023 14:43:06 History of right total knee replacement 3432612521 967287 Z96.451 [id number] RHIANNON Vyas [facility] [address] [facility] [address] [place] [address] 03/06/2023 13:59:41 03/06/2023 15:35:08 History of right total knee replacement 4870077851 604697 Z96.157 [id number] RHIANNON [facility] [address] [place] [address] 03/27/2023 16:38:11 03/27/2023 17:29:31 History of right total knee replacement [id number] Z96.651 Health Concerns Section Related Observation LastModified by Organization Detai ls LastModified Time None Recorded Concern Status LastModified by Organization Details LastModified Time None Recorded Advance Directives Directive None Recorded Payers Encounter Date Sequence Insurance Name Policy Number Policy Spangler Covered Member ID Spangler Member ID Guarantor Name 12/30/2022 1 [facility] (MEDICARE REPLACEMENT/A DVANTAGE - HMO) [id number] Franny Recinosp [id number] Franny Recinosp 02/08/2023 1 [facility] (MEDICARE REPLACEMENT/A DVANTAGE - HMO) [id number] Franny Recinosp [id number] Franny Dowd Jeannette 02/20/2023 1 [facility] (MEDICARE REPLACEMENT/A DVANTAGE - HMO) [id number] Franny Recinosp [id number] Franny Dowd Jeannette 03/06/2023 1 [facility] (MEDICARE REPLACEMENT/A DVANTAGE - HMO) [id number] Franny Recinosp [id number] Franny Dowd Jeannette 03/27/2023 1 [facility] (MEDICARE REPLACEMENT/A DVANTAGE - HMO) [id number] Franny Recinosp [id number] [facility] Notes Date Note Type Note Provider Name and Address Organization Details Recorded Time 12/30/2022 text/html patient returns. She is a 67-year-old female with [id number] medial compartment osteoarthritis in her right knee. She has been working very hard to lose weight and taking Ozempic injection once a week to help with this. She does not have diabetes. She has lost 25 lb since September 12. On her scale at home she is 220 lb. On the scale today in our office with clothing on she weighed 223 lb for a BMI of 40.8. She has been going to physical therapy working on core strengthening and range of motion knee strengthening. She would like to proceed with knee replacement surgery. She had been getting cortisone shots in her right knee every 3 months But the last injection in May of this year did not give much relief. She has been taking meloxicam 15 mg once daily. I have reviewed with her that there is risk that this will affect her kidney function and she only has 1 kidney remaining because of removal of the other kidney due to kidney cancer in 2020. She underwent left total knee arthroplasty in 2017 posterior stabilized attune knee that we did. She is very happy with her result. She does notice the constant clicking sensation in noise from the cam in the post of the posterior stabilized construct. Her last x-rays of the right knee were from the June 08, 2022 and demonstrate advanced [id number] medial compartment osteoarthritis the right knee with complete loss of joint space the with the medial compartment and sclerotic changes medial tibial plateau and weight-bearing portion medial femoral condyle. Mild patellofemoral arthritis is noted. She has incidental note of on resurface patella left total knee arthroplasty on the left side. Waqar Jolly MD [address] [place] [address], [facility] [address], [place], [address], [place] - [facility] 01/01/2023 22:16:36 OBGyn Episode No OBEpisode recorded.
--- OUTSIDE RECORDS SUMMARY | 2024-06-14 07:25 | XMS_ITS | Patient Health Summary ---
Author Organization [facility] Address [address] [place] [address] Care Team Providers Care Skein Bleacher Name Role Phone Unavailable Primary Care Provider Unavailabl e Note from [facility],non-owned Affiliates and Associated Physician Practices is amultiple site organization consisting of ambulatory clinics and hospital sitesin [place], [place], [place] and [place]. This disclosure is being madepursuant to the Care Everywhere program and may not contain all information available regarding this patient. Last updated 18.[facility] Allergies * Sulfa Drugs(does not remember reaction(been 2o years)) Medications * Be aware that medications may not be up to date on this document. Alwaysverify current medications with the patient. * omeprazole (PRILOSEC) 40 MG capsule Take 40 mg by mouth daily with dinner * atorvastatin (LIPITOR) 20 MG tablet Take 20 mg by mouth daily with dinner * celecoxib (CELEBREX) 200 MG capsule Take 200 mg by mouth daily with dinner * ibuprofen (MOTRIN) 200 MG tablet Take by mouth every 6 hours as needed for Pain Social History Tobacco Use Types Packs/Day Years [...] - - Body Mass Index - - Procedures * PAIN MANAGEMENT PROCEDURE TIME(Performed 03/13/2017) Performed for Spinal stenosis of lumbar region with neurogenic claudication, Spondylosis of lumbosacral region without myelopathy or radiculopathy, Low back pain, unspecified back pain laterality, unspecified chronicity, with sciatica presence unspecified, Other chronic pain * DERMATOPATHOLOGY(Performed 04/25/2016) * DERMATOPATHOLOGY(Performed 02/14/2013) Results * PAIN MANAGEMENT PROCEDURE TIME (03/13/2017 9:15 AM CDT) Anatomical Region Laterality Modality X-Ray Angiograph y Narrative 03/13/2017 10:54 AM CDT Hugo De La Paz MD ? 03/13/2017 10:54 AM Bilateral Lumbar Facet Joint Injection Patient Name: Catherine Machado ?Provider: Hugo De La Paz MD Date of : 1955 ?Date: 03/13/2017 PCP: No primary care provider on file. Allergies: Allergies as of 03/13/2017 - Naveen as Reviewed 03/13/2017 Allergen Reaction Noted ? ? Sulfa drugs ??03/13/2017 Indication for procedure: Low back pain, Facet Joint Syndrome Diagnosis/Indication: Low back pain, Facet Joint Syndrome ?? M47.816, M47.817, M54.5 Bilateral ?? L3-4, L4-5, L5-S1 Other conservative therapies and/or treatments provided inadequate pain relief. Informed Consent: After the patient was informed of the risks and benefits of the procedure and all questions were answered, consent was signed. ??Patient is not on Coumadin, Plavix, or other blood thinners. Responsible hydraulic lift driver is not needed due to patient not having sedation. Prep: Patient was identified, proper procedure identified,and the site identified and marked by Dr. De La Paz. A time out was done with all team members present. The patient's back was prepped with cholorprep in the usual manner. The procedure was done under fluroscopy, verifying needle placement with guided fluroscopy. The facet joint was identified and local injection of Lidocaine 1.0%was injection into the skin and subcutaneous tissues using a 25 gauge needle. Needle placement: A 25 gauge 3 1/2 inch spinal needle was then inserted through the anesthetized area until the tip came in contact with the facet joint under fluroscopic visualization. Facet Injection: Marcaine 0.25% 4 ml with epinephrine 8 ml plus 80 mg of Depo-Medrol ??was prepared. One to one and a half ml of the solution was injected through a 22 gauge needle after negative aspiration. The 22 gauge spinal needle was then withdrawn from the patient. This procedure was repeated for additional facet joints. Depo-Medrol: 13 mg per level, 80mg total . Estimated Blood Loss: None ? The patient tolerated the procedure well and there were no complications. ??The patient was allowed to rest and recover after the procedure. ??The patient remained in stable condition with no apparent complications. ??Vital signs stable. ??Injection site clean, dry and intact. ??Post procedure instructions were given to the patient and a follow up appointment was confirmed. ??The patient was discharged with information on how to reach the clinic at anytime for questions or concerns. ??Patient ambulatory, denies complaints, discharged to home. ??Patient survey given. Hugo De La Paz MD Hugo De La Paz MD DIAGNOSTIC IMAGING O RDERABLES * PATHOLOGY TISSUE FOR DERMATOLOGY (04/25/2016 12:00 AM TELESALES SPECIALIST) Only the most recent of2 resultswithin the time period is included. Result CASE: [id number] PATIENT: CATHREINE MACHADO PATHOLOGIC DIAGNOSIS: Right FA: SEBORRHEIC KERATOSIS, MACULAR CLINICAL DATA: Lentigo, irregular color. GROSS DESCRIPTION: Received is one formalin filled container labeled with the patients name and designated right FA. The specimen consists of a shave measuring [id number]. Jar 0. MICROSCOPIC DESCRIPTION: Sections show a relatively broad, flat proliferation of small keratinocytes. The surface is gently papillated, and there is increased basilar pigmentation. Electronically signed out by Soheila Garcia M.D. 04/28/2016 2:47:17PM [facility] Comment: Performed at: Dermatopathology Laboratory [facility] - Department of Dermatology [address] [place] [address] 5th [place] [address] Phone number: [phone] FAX: [phone] 04/25/2016 04/27/2016 Elinor Vuong MD LAB - PATHOLOGY/CYT OLOGY ORDERABLES [facility] D[facility] [facility]. 5th [place] [address], [facility] [phone]
--- OUTSIDE RECORDS SUMMARY | 2024-06-14 07:26 | XMS_ITS | Continuity of Care Document ---
Author Organization [facility] Address [address] [place] [address] Phone Care Team Providers Care Brass Reclaimer Name Role Phone Arelis OD OD, Logan Unavailable Unavailabl e Procedures Procedure Date Office/outpatient Visit, [facility] Corneal Topography Eye Photography Fundus Photography W/ Report Refraction Advance Directives Directive Yes / No Effective Date File Name No Information Encounters Encounter Description Practice Location Reason(s) For Visit Diagnoses Date Provider Providers Copied on Encounter Office/outpat ient Visit, [facility], [address], [place], [place], [id number], [place] tel:[phone] [facility] Domingo No Information Arelis OD Logan. [address] [place], [place], [id number], [place]. tel:[phone] Referring Provider: Logan Infante OD P, [address] [place], [address] . tel:[phone] Family History Family Member Type Diagnosis Age At Onset No Information Payers Payer name Insurance type Covered alliance party ID Authoriza tion(s) No Information Social History Type Description Quantity Date Captured Comments Sex Female Smoking Status No Information Chief Complaint And Reason For Visit No Information Reason For Referral Reason For Referral No Information History Of Present Illness Encounter Date Complaint History Of Prese nt Illness No Information Functional Status Date Functional Assessmen t No Information Instructions Date Instruction Additional Infor mation No Information Assessments Type Assessment Date No Information Patient Care Teams Name Effective Dates (start - stop) Status Members No Information
--- OUTSIDE RECORDS SUMMARY | 2024-06-14 07:26 | XMS_ITS | Encounter Summary ---
Author Organization [facility] Address [address] [place] [address]. [place], [place] [address] [place] [address] Care Team Providers Care Clinical Pharmacy Manager Name Role Phone Yari Dow Primary Care Provider [phone] Reason for Visit * Reason Onset Date Comments Radiology Results 11/27/2023 Encounter Details Date Type Department Care Team (Late Contact Info) Description 11/27/2023 Let's Jockt Message Enc [facility] Family & Internal Medicine [facility] [address] [place] [address] Yari Dow APNP [address] [place] [address] Mammogram Social History Tobacco Use Types Packs/Day Years Used Date Smoking Tobacco: Never Smokeless Tobacco: Never Alcohol Use Standard Drinks/Week Comments No 0 (1 standard drink = 0.6 oz pur e alcohol) AUDIT-C Answer Date Recorded Q1: How often do you have a drink containing alc ohol? Monthly or less 10/25/2022 Q2: How many drinks containi ng alcohol do you have on a typical day when you are drinking? 1 or 2 10/25/2022 Q3: How often do you have si x or more drinks on one occasion? Never 10/25/2022 PHQ-2 Answer Date Recorded Patient Health Questionnaire-2 Score 1 10/25/2022 Comments No Sex and Gender Information Value Date Recorded Sex Assigned at Not on file Legal Sex Female 9:33 PM CDT Gender Identity Not on file Sexual Orientation Not on file documented as of this encounter Plan of Treatment Upcoming Encounters Date Type Department Care Team (Late st Contact Info) Description 06/19/2024 9:40 AM TENNIS PROFESSIONAL Office Visit [facility] Family & Internal Medicine - [place] [address] [place] [phone] Yari Dow APNP [address] [place] [address] 06/28/2024 11:40 AM TENNIS PROFESSIONAL Office Visit [facility] Multispecialty Care - [facility] [address] [facility] [place] [address] Brant Madera MD [address] [facility] [address] [place] [address] 10/04/2024 9:45 AM CDT Office Visit [facility] [phone] Shamir Lema MD [address] [facility] [address] [place] [address] documented as of this encounter Visit Diagnoses Not on filedocumented in this encounter Additional Health Concerns Assessment Noted Time PHQ-9 Depression Total Score: 2 10/26/19 23 10:25 AM CDT documented as of this encounter Care Teams Clinical Pharmacy Manager Relationship Specialty Start Date End Date Yari Dow APNP [address] [place] [address] PCP - General NURSE PRACTITIONER 04/25/18 documented as of this encounter
--- OUTSIDE RECORDS SUMMARY | 2024-06-14 07:26 | XMS_ITS | Encounter Summary ---
Author Organization [facility] Address [address] [place] [address]. [place], [place] [address] [place] [address] Care Team Providers Care Director Teen Post Name Role Phone Yari Dow Primary Care Provider [phone] Encounter Details Date Type Department Care Team (Late Contact Info) Description 08/24/2022 Phone Warriorhart Message Enc [facility] Family & Internal [address] [address] Yari Dow APNP [facility] [place] [address] Ozempic Social History Tobacco Use Types Packs/Day Years Used Date Smoking Tobacco: Never Smokeless Tobacco: Never Alcohol Use Standard Drinks/Week Comments No 0 (1 standard drink = 0.6 oz pur e alcohol) AUDIT-C Answer Date Recorded Frequency of Alcohol Consumption Never 05/21/2018 Average Number of Drinks Not on file 019 Frequency of Binge Drinking Not on file 11/2018 PHQ-2 Answer Date Recorded Patient Health Questionnaire-2 Score 1 07/01/2022 Comments No Sex and Gender Information Value Date Recorded Sex Assigned at Not on file Legal Sex Female 9:33 PM CDT Gender Identity Not on file Sexual Orientation Not on file documented as of this encounter Plan of Treatment Upcoming Encounters Date Type Department Care Team (Late Contact Info) Description 06/19/2024 9:40 AM INSURANCE SALES SPECIALIST Office Visit [facility] Family & Internal [address] [phone] Yari Dow APNP [address] [place] [address] 06/28/2024 11:40 AM INSURANCE SALES SPECIALIST Office Visit [facility] Mult[facility] - [facility] [address] [facility] [place] [address] Brant Madera MD [address] [facility] [address] [place] [address] 10/04/2024 9:45 AM CDT Office Visit [facility]-[address] [address] Shamir Lema MD Three [facility] [address] [place] [address] documented as of this encounter Visit Diagnoses Not on filedocumented in this encounter Additional Health Concerns Assessment Noted Time PHQ-9 Depression Total Score: 4 07/01/19 23 2:18 PM INSURANCE SALES SPECIALIST documented as of this encounter Care Teams Director Teen Post Relationship Specialty Start Date End Date Yari Dow APNP [address] [place] [address] PCP - General NURSE PRACTITIONER 04/25/18 documented as of this encounter
--- OUTSIDE RECORDS SUMMARY | 2024-06-14 07:26 | XMS_ITS | Encounter Summary ---
Author Organization [facility] Address [address] [place] [address]. [place], [place] [address] [place] [address] Care Team Providers Care Artificial Stone Applicator Name Role Phone Yari Dow Primary Care Provider [phone] Waqar Us MD Unavailable [phone] Encounter Details Date Type Department Care Team (Late st Contact Info) Description 11/05/[address] [facility] [place], [place] [phone] Kandis Emanuel MD [facility] [address] Social History Tobacco Use Types Packs/Day Years Used Date Smoking Tobacco: Never Smokeless Tobacco: Never Alcohol Use Standard Drinks/Week Comments No 0 (1 standard drink = 0.6 oz pur e alcohol) AUDIT-C Answer Date Recorded Frequency of Alcohol Consumption Never 05/21/2018 Average Number of Drinks Not on file 019 Frequency of Binge Drinking Not on file 11/2018 PHQ-2 Answer Date Recorded PHQ-2 Score 0 05/01/2019 Comments No Sex and Gender Information Value Date Recorded Sex Assigned at Not on file Legal Sex Female 9:33 PM CDT Gender Identity Not on file Sexual Orientation Not on file COVID-19 Exposure Response Date Recorded In the last month, have you been in contact with someone who was confirmed or suspected to have Coronavirus / COVID-19? No / Unsure 11/08/2019 6:54 AM CDT documented as of this encounter Plan of Treatment Upcoming Encounters Date Type Department Care Team (Late st Contact Info) Description 06/19/2024 9:40 AM PRODUCTION MACHINIST Office Visit [facility] Family & Internal Medicine - [address] [phone] Yari Dow APNP [address] [place] [address] 06/28/2024 11:40 AM PRODUCTION MACHINIST Office Visit [facility] Multispecialty Care - Health system [address] [facility] [place] [phone] Brant Madera MD [address] [facility] [address] [place] [address] 10/04/2024 9:45 AM CDT Office Visit [facility]-[address] [address] Shamir Lema MD Three [facility] [address] [place] [address] documented as of this encounter Results * PRE-SURGICAL/PRE-PROCEDURE CORONAVIRUS (COVID 19) (11/05/2019 2:08 PM CDT) CORONAVIRUS SARS COV 2 PCR (RESP) NOT DETECTED NOT DETECTED 11/06/2019 1:24 PM CDT [facility] Comment: A Not Detected (negative) test result for this test means that SARS- CoV-2 RNA was not present in the specimen above the limit of detection. A negative result does not rule out the possibility of COVID-19 and should not be used as the sole basis for treatment or patient management decisions. ??If COVID-19 is still suspected, based on exposure history together with other clinical findings, re-testing should be considered in consultation with public health authorities. Laboratory test results should always be considered in the context of clinical observations and epidemiological data in making a final diagnosis and patient management decisions. Please review the Fact Sheets and FDA authorized labeling available for health care providers and patients using the following websites: https://www.StartWire.Rockabox/home/Covid-19/HCP/QuestIVD/fact- sheet.html https://www.[employer].Rockabox/home/Covid-19/Patients/ QuestIVD/fact-sheet.html This test has been authorized by the FDA under an Emergency Use Authorization (EUA) for use by authorized laboratories. Due to the current public health emergency, [facility] is receiving a high volume of samples from a wide variety of swabs and media for COVID-19 testing. In order to serve patients during this public health crisis, samples from appropriate clinical sources are being tested. Negative test results derived from specimens received in non-commercially manufactured viral collection and transport media, or in media and sample collection kits not yet authorized by FDA for COVID-19 testing should be cautiously evaluated and the patient potentially subjected to extra precautions such as additional clinical monitoring, including collection of an additional specimen. Methodology: ??Nucleic Acid Amplification Test (NAAT) includes PCR or TMA Additional information about COVID-19 can be found at the [facility] website: www.[employer]Rockabox/Covid19. Test performed at [facility] [place] [address] [place], [place] ??[phone] Director: ROSA CALDERON DO,MPH NASOPHARYNGEAL SWAB / Unknown 11/05/2019 2:08 PM CDT us Kandis Emanuel MD MICROBIOLOGY - GENERAL ORDERABLE S Final Result [facility] [id number] [place] [id number] [place] [address] documented in this encounter Visit Diagnoses Diagnosis Hemorrhoids- Primary Unspecified hemorrhoids without mention of complication documented in this encounter Additional Health Concerns Infection Onset Date Last Indicated Resolved Time COVID-19 Rule Out 11/05/2019 11/05/2019 11/06/2019 1:25 PM CDT Assessment Noted Time PHQ-9 Depression Total Score: 0 05/01/20 19 11:38 AM PRODUCTION MACHINIST documented as of this encounter Care Teams Artificial Stone Applicator Relationship Specialty Start Date End Date Yari Dow APNP [address] [place] [address] PCP - General NURSE PRACTITIONER 04/25/18 Waqar Us MD [facility] [place] [address] PCP - Med Group - [facility] Attributed Provider 07/15/19 05/15/20 documented as of this encounter
--- OUTSIDE RECORDS SUMMARY | 2024-06-14 07:26 | XMS_ITS | Encounter Summary ---
Author Organization [facility] Address [address] [place] [address]. [place], [place] [address] [place] [address] Care Team Providers Care Accountant Assistant Name Role Phone Paloma Yari Kobe HERNDON Primary Care Provider [phone] Encounter Details Date Type Department Care Team (Late Contact Info) Description 09/28/2023 [employer] Message [facility] [address] Shamir Lema MD [facility] [address] [place] [phone] [place] Social History Tobacco Use Types Packs/Day Years [...] (Late Contact Info) Description 06/19/2024 9:40 AM COMPENSATION AND BENEFITS MANAGER Office Visit [facility] Family & Internal Medicine - [place] [address] [place] [phone] Yari Dow APNP [address] [place] [address] 06/28/2024 11:40 AM COMPENSATION AND BENEFITS MANAGER Office Visit [facility] Multispecialty Care - [facility] [address] [facility] [place] [address] Brant Madera MD [address] [facility] [address] [place] [address] 10/04/2024 9:45 AM CDT Office Visit [facility] [phone] Shamir Lema MD [address] [facility] [address] [place] [address] documented as of this encounter Visit Diagnoses Not on filedocumented in this encounter Additional Health Concerns Assessment Noted Time PHQ-9 Depression Total Score: 2 10/26/19 23 10:25 AM CDT documented as of this encounter Care Teams Accountant Assistant Relationship Specialty Start Date End Date Yari Dow APNP [address] [place] [address] PCP - General NURSE PRACTITIONER 04/25/18 documented as of this encounter
--- OUTSIDE RECORDS SUMMARY | 2024-06-14 07:26 | XMS_ITS | Encounter Summary ---
Author Organization [facility] Address [address] [place] [address]. [place], [place] [address] [place] [address] Care Team Providers Care Carpenter Supervisor Wooden Ship Name Role Phone Yari Dow Primary Care Provider [phone] Encounter Details Date Type Department Care Team (Late Contact Info) Description 08/04/2022 Ceannatehart Message Enc [facility] Family & Internal [address] [address] Yari Dow APNP [facility] [place] [address] Ozempia Social History Tobacco Use Types Packs/Day Years [...] (Late Contact Info) Description 06/19/2024 9:40 AM COKE BURNER Office Visit [facility] Family & Internal [address] [phone] Yari Dow APNP [address] [place] [address] 06/28/2024 11:40 AM COKE BURNER Office Visit [facility] Mult[facility] - [facility] [address] [facility] [place] [address] Brant Madera MD [address] [facility] [address] [place] [address] 10/04/2024 9:45 AM CDT Office Visit [facility]-[address] [address] Shamir Lema MD Three [facility] [address] [place] [address] documented as of this encounter Visit Diagnoses Not on filedocumented in this encounter Additional Health Concerns Assessment Noted Time PHQ-9 Depression Total Score: 4 07/01/19 23 2:18 PM COKE BURNER documented as of this encounter Care Teams Carpenter Supervisor Wooden Ship Relationship Specialty Start Date End Date Yari Dow APNP [address] [place] [address] PCP - General NURSE PRACTITIONER 04/25/18 documented as of this encounter
--- OUTSIDE RECORDS SUMMARY | 2024-06-14 07:26 | XMS_ITS | Clinical Summary ---
Author Organization [facility] [place] Address [address] [place] [address]. [place] [address] [place] [address] Care Team Providers Care Homebound Teacher Name Role Phone Yari Dow Primary Care Provider Allergies Active Allergy Reactions Criticality Noted Date Comments Rosuvastatin Other (see comment) 09/22/2023 Light headednessay Elemental Sulfur Rash Low 04/27/2020 Statins Myalgias 09/22/2023 Sulfa Antibiotics Unknown,Vomiting 03/13/2017 does not remember reaction(been 2o years) Medications acetaminophen (TYLENOL) 500 MG tablet Take 1 tablet (500 mg total) by mouth every 6 (six) hours as needed. Active fluticasone propionate (FLONASE) 50 MCG/ACT nasal sprayIndication s:Dysfunction of left eustachian tube 2 sprays by Nasal route daily. 18.2 mL 1 06/15/19 24 Active Additional Information Patient taking differently:2 spray Nasal Daily,Using as needed, Reported on 03/22/2024 Cholecalciferol (D3 ADULT OR) Active clindamycin (CLEOCIN T) 1 % external solution APPLY SOLUTION TOPICALLY TO SCALP TWICE DAILY NEEDED 08/04/19 24 Active famotidine (PEPCID) 20 MG tabletIndicatio ns:Gastroesopha geal reflux disease without esophagitis Take 2 tabs twice daily 360 tablet 1 11/24/19 24 Active ezetimibe (ZETIA) 10 MG tablet Take 1 tablet (10 mg total) by mouth daily. 90 tablet 3 03/22/20 24 025 Active amLODIPine (NORVASC) 2.5 MG tabletIndicatio ns:Benign essential hypertension Take 1 tablet by mouth once daily 60 tablet 06/12/19 25 Active amLODIPine (NORVASC) 2.5 MG tabletIndicatio ns:Benign essential hypertension Take 1 tablet (2.5 mg total) by mouth daily. 60 tablet 1 02/22/20 24 025 Discontinued Active Problems Problem Noted Date Diagnosed Date Morbid (severe) obesity due to excess calories ([facility]) 03/03/2022 Body mass index (BMI) 40.0-44.9, adult ([facility]) 03/03/2022 Elevated blood pressure reading 08/14/2020 Coronary artery calcification seen on CT scan Urinary incontinence 05/04/2020 Sleep apnea 05/04/2020 Osteoarthrosis 05/04/2020 Osteoarthritis of shoulder region 05/04/2020 Osteoarthritis of knee 05/04/2020 Myalgia 05/04/2020 Joint replaced by other means 05/04/2020 Depressive disorder 05/04/2020 Benign paroxysmal positional vertigo 05/04/2020 Enthesopathy of hip region 05/04/2020 Peroneal tendinitis 04/18/2018 Positive LAMBERTO (antinuclear antibody) 03/05/2018 Benign essential hypertension 01/30/2018 GERD (gastroesophageal reflux disease) 8 Atherosclerosis of aorta 10/19/2017 Lumbar spondylosis 10/19/2017 Vitamin D deficiency 10/19/2017 Hyperglycemia 05/01/2017 Diastolic dysfunction 03/18/2016 Overview (03/29/2021): Overview: Diastolic dysfunction Diastolic dysfunction Hyperlipidemia 03/18/2016 Overview (05/21/2018): Overview: Hyperlipidemia, unspecified Morbid obesity ([facility]) 03/18/2016 Overview (05/21/2018): Overview: Morbid obesity due to excess calories Obstructive sleep apnea, adult 03/18/2016 Overview (05/21/2018): Overview: ROHITH (obstructive sleep apnea) Resolved Problems Problem Noted Date Diagnosed Date Resolved Date Encounter for long-term (cur rent) use of insulin ([facility]) 05/04/2020 06/10/2020 Shoulder joint pain 05/04/2020 08/21/19 Hand swelling 03/05/2018 08/20/2021 Rectal pain 02/12/2018 08/20/2021 Lower extremity edema 01/30/20182021 Hot flashes 12/20/2017 08/20/2021 Palpitations 12/19/2017 08/20/2021 Hematuria 10/24/2017 08/20/2021 Bright red blood per rectum 10/19/2017 08/20/2021 Heartburn 10/12/2017 08/20/2021 Encounters Date Type Department Care Team Description 04/24/2024 Scan [facility] Scanned, [facility] 04/19/2024 Scan [facility] Scanned, [facility] 04/18/2024 Scan [facility] Scanned, [facility] 04/18/2024 [facility] [address] [place] [phone] Brant Madera MD Results 04/16/[address] [place] [phone] Brant Madera MD Results 04/15/2024 Scan [facility] Scanned, [facility] 04/15/2024 Telephone [facility] [address] [address] Yari Dow APNP Mammography Order 04/03/2024 7:37 PM NUCLEAR POWER REACTOR OPERATOR - 04/03/2024 11:59 PM NUCLEAR POWER REACTOR OPERATOR Hospital Encounter [facility] [address] [place] [address] Brant Madera MD Obstructive Sleep Apnea Discharge Disposition: Home or Self Care (Routine Discharge) 04/03/2024 Travel 03/28/2024 MyChart Message Enc [facility] Internal Medicine - [address] [phone] Yari Dow APNP Mammogram 03/22/2024 11:45 AM NUCLEAR POWER REACTOR OPERATOR Office Visit [facility] [phone] Shamir Lema MD Lipids (6MO) 03/22/2024 Travel from Last 3 Months Immunizations Name Administration Dates Next Due Fluzone High Dose (IIV, trivalent, 0.5mL) 2018 Fluzone High Dose - >Age 65 (Prefilled Syringe) 02/28/2022,04/12/2021,02/01/2020 Influenza Adult (Generic) 02/12/2019 FOZIA (KAYLA & KAYLA) COVID-19 AD26 VACCINE 0.5 ML IM SUSP 07/26/2020,07/13/2020 Pneumococcal (Pneumovax 23) 03/24/2020 Pneumococcal (Prevnar 13) 02/16/2019 Shingrix 06/04/2019,02/16/2019 Family History Medical History Relation Comments Diabetes Brother Hypertension Father Hypertension Mother Breast Cancer Sister Relation Status Comments Brother Father Mother Sister Social History Tobacco Use Types Packs/Day Years Used Date Smoking Tobacco: Never Smokeless Tobacco: Never Tobacco Cessation:Counseling Given: No Alcohol Use Standard Drinks/Week Comments No 0 [...] Sign Reading Time Taken Comments Blood Pressure 138/78 03/22/2024 11:35 AM NUCLEAR POWER REACTOR OPERATOR Pulse 70 03/22/2024 11:35 AM NUCLEAR POWER REACTOR OPERATOR Temperature 36.8 ??C (98.3 ??F) 02/20/2024 3:01 PM C DT Respiratory Rate 16 02/20/2024 3:01 PM CDT Oxygen Saturation 96% 03/22/2024 11:35 AM NUCLEAR POWER REACTOR OPERATOR Inhaled Oxygen Concentration - - Weight 113.4 kg (250 lb) 03/22/2024 11:35 AM NUCLEAR POWER REACTOR OPERATOR Height 157.5 cm (5' 2 ) 03/22/2024 11:35 AM NUCLEAR POWER REACTOR OPERATOR Body Mass Index 45.73 03/22/2024 11:35 AM NUCLEAR POWER REACTOR OPERATOR Plan of Treatment Upcoming Encounters Date Type Department Care Team (Late st Contact Info) Description 06/19/2024 9:40 AM NUCLEAR POWER REACTOR OPERATOR Office Visit [facility] Family & Internal Medicine - [address] [phone] Yari Dow APNP [address] [place] [address] 06/28/2024 11:40 AM NUCLEAR POWER REACTOR OPERATOR Office Visit [facility] - [facility] [address] [facility] [place] [phone] Brant Madera MD [address] [facility] [address] [place] [address] 10/04/2024 9:45 AM CDT Office Visit [facility] [phone] Shamir Lema MD [address] [facility] [address] [place] [address] Health Maintenance Due Date Last Done Comments Hepatitis C 01/16/1972 DTaP, Tdap and Td Vaccines (1 - Tdap) 1973 RSV Immunization or 60+ Years (1 - Risk 60-74 years 1-dose series) 2014 Annual Medicare Wellness Visit 10/27/2023 10/25/2022, 11/04/2021 COVID-19 Vaccine ( season) 2024 07/26/2020, 07/20/2020, 07/13/2020 Influenza Adult (#1) 2024 02/28/2022, 04/12/2021, 02/01/2020, Additional history exists PHQ-2 (Physician [place]) 05/15/2024 10/25/2022 Mammogram Screening 05/28/2026 05/28/2024, 11/20/2023, 11/20/2023, Additional history exists Colorectal Cancer Screening Colonoscopy (10 Years) 11/07/2029 11/08/2019, 11/08/2019 Zoster Vaccines Completed 06/04/2019, 02/16/2019 Dexa Scan (General) Completed 02/03/2020, 0 Pneumococcal Vaccine: 65+ Years Completed 03/24/2020, 02/16/2019 Meningococcal B Vaccine Aged Out No l onger eligible based on patient's age to complete this topic Meningococcal Vaccine Aged Out No alicia dangelo eligible based on patient's age to complete this topic RSV Immunizations Under 20 Months Aged Out No longer eligible based on patient's age to complete this topic Procedures Procedure Name Priority Date/Time Associated Diagnosis Comments MG DIAGNOSTIC BARRON DIGI Routine 12:00 AM NUCLEAR POWER REACTOR OPERATOR Encounter for screening for malignant neoplasm of breast Abnormal mammogram of left breast POLYSOMNOGRAPHY 4 OR MORE PARAMETERS Routine 04/03/2024 8:00 PM NUCLEAR POWER REACTOR OPERATOR ROHITH (obstructive sleep apnea) BONE DENSITY GENERIC (SCAN ORDER) 02/03/2020 COLONOSCOPY GENERIC (SCAN ORDER) Routine 11/08/2019 from Last 3 Months or Most Recently Relevant to Health Maintenance Results * MG DIAGNOSTIC BARRON DIGI (05/28/2024 12:00 AM NUCLEAR POWER REACTOR OPERATOR) Anatomical Region Laterality Modality Breast Bilateral Mammography 05/28/2024 us Yari HERNDON MAMMO Final Resul t * Diagnostic PSG (34281, [address]77) (04/03/2024 8:00 PM NUCLEAR POWER REACTOR OPERATOR) Narrative [facility] - 04/03/2024 8:00 PM NUCLEAR POWER REACTOR OPERATOR David Ford MD ? 04/18/2024 ??1:06 PM [place] DIAGNOSTIC NOCTURNAL POLYSOMNOGRAM INTERPRETATION PATIENT NAME: FRANNY MACHADO DATE OF : 1955 DATE OF SERVICE: 04/03/2024 PATIENT TYPE: CLI Ordering Phy Exam Description Brant Madera MD PSG 4+PARAMETERS ATTENDING PHYSICIAN: David Ford MD REFERRING PHYSICIAN: Brant Madera MD GENERAL INFORMATION Total Sleep Time: 209.0 minutes Sleep Efficiency Index: 57.7% Sleep Latency: 103.3 minutes REM Latency: 93.5 minutes Respiratory Disturbance Index: 18.4 per hour ?? Apnea-Hypopnea Index: 6.6 per hour Procedure: The overnight polysomnogram was an attended study using a multiple channel system including simultaneous monitoring and recording of electroencephalography (EEG), right and left electrooculography (EOC), submental electromyography (EOG), submental electromyography (EMG), EKG, oral/nasal airflow, snoring, respiratory effort, oxygen saturations, right and left anterior tibialis electromyography, and body position. Sleep Architecture: The patient underwent sleep testing and slept for a total of 209.0 minutes during 362.3 minutes of recording time. Latency to persistent sleep was 103.3 minutes with sleep efficiency of 57.7% and a REM latency of 93.5 minutes. Patient spent 9.1% (19.0 minutes) in stage N1, 56.5% (118.0 minutes) in stage N2, 23.4% (49.0 minutes) in Stage N3, 11.0% (23.0 minutes) in REM. The patient slept 34.9% of the time in supine position, 14.8% of the time in prone position, 0.0% of the time in left-sided position, and 50.2% of the time in right-sided position. There were 62 arousals, of which 48 were associated with respiratory events and 14 were spontaneous. Arousal index was 17.8 per hour. Limb Activity Summary: The patient demonstrated a total of - leg movements during the night, of which - had the appearance of periodic limb movements. There were a total of - arousals associated with leg movements for an arousal index with leg movements of - per hour. The periodic limb movement index was - per hour. Cardiac Events Summary: The average heart rate was 80.1 beats per minute. No cardiac events were noted during this study. Respiratory Events Summary: There were a total of 24 apneas and hypopneas, of which - were apneas. Of those apneas, - were Obstructive, - were Central and - were Mixed. There were an additional 41 respiratory event-related arousals. The overall AHI was 6.6 per hour and the overall RDI was 18.4 per hour. During non-supine sleep, the overall AHI was 7.9 per hour. During supine sleep, the overall AHI was 4.1 per hour. NREM AHI was 3.2 per hour and REM AHI was 33.9 per hour. Oxygen Saturation Summary: Patient's average saturation was 93.3% during REM and 93.2% during NREM. The patient's lowest saturation was 86.0% during REM and 88.0% during NREM. Saturation was 90% or higher for 98.1% of the total sleep time. Saturation was less than or equal to 88% for 0.4% of the total sleep time or 0.8 minutes. Assessment/Plan: Mild Obstructive Sleep Apnea with a significant increase in respiratory events during REM sleep. There was decreased sleep time during this study. Castine treatment option should be discussed with the patient and a plan for treatment should be made. Potential health consequences and medical importance of treatment should also be discussed with the patient. This patient should maintain good sleep hygiene techniques, maintain a consistent sleep/wake schedule with adequate hours of sleep, and avoid hazardous activities when sleepy. The patient should be cautioned about factors that may potentially exacerbate snoring and sleep-related problems, such as CASHIER CLERK depressants, especially at bedtime. This document was electronically signed by: David Ford M.D. on 04/15/2024 9:36 AM. Brant Madera MD SLEEP CENTER ORDERABLES Final Result [facility] [address] [place] [address], * BONE DENSITY GENERIC (02/03/2020) Anatomical Region Laterality Modality Other 02/03/2020 Narrative 02/03/2020 Ordered by an unspecified provider. us Documents Scanned SCANNING Final Result * COLONOSCOPY (11/08/2019) us Documents Scanned SCANNING Final Result [facility] ONBASE from Last 3 Months or Most Recently Relevant to Health Maintenance Insurance [facility] Advance Directives Documents on File Type Date Recorded Patient Casino Slot Supervisor Expl anation Advance Directives and Living Will 12/28/2020 8:29 AM 12/21/2020 POLST Care Teams Homebound Teacher Relationship Specialty Start Date End Date Yari Dow APNP [address] [place] [address] PCP - General NURSE PRACTITIONER 04/25/18
--- OUTSIDE RECORDS SUMMARY | 2024-06-14 07:26 | XMS_ITS | Continuity of Care Document ---
Author Organization [facility] Address [address] [place] [address] Phone Care Team Providers Care Windows Laptop Technician Name Role Phone Gio Byrne MD Unavailable Unavailable Allergies, Adverse Reactions, Alerts Substance Reaction Status Criticality VENLAFAXINE HCL Other Active No Informati on TRAMADOL HCL Other Active No Information Medications Medication Instructions Dosage Effective Dates (start - stop) Status Comments Protonix 40 mg tablet,delayed release take 1 tablet (40MG) by oral route every day 40 MG - Active Celebrex 200 mg capsule take 1 capsule (200MG) by oral route every day as needed 200 MG - Active Lipitor 80 mg tablet take 1 tablet (80MG ) by oral route every day 80 MG - Active Vitamin B-12 ER 500 mcg tablet,extended release 1 qd - Active FENOFIBRATE 54 MG TABLET 1 QD-daily - Active Advance Directives Directive Yes / No Effective Date File Name No Information Encounters Encounter Description Practice Location Reason(s) For Visit Diagnoses Date Provider Providers Copied on Encounter [facility], [address], [place], [place], [address] , [place] tel: [phone] [facility] No Information 3 Chavez Powers. [address] [facility], [facility] [address], [place], [place], [address]. [phone] [facility], [address], [place], [place], [address] , tel: [phone] [facility] No Information 3 Chavez Powers. [address] [facility], [facility] [address] [place] [address], [id number]. tel:[phone] [facility], [address], [place], [place], [address] , tel: [phone] [facility] Other and unspecified hyperlipidemia 3 Hilton Pappas. [address], [place], [place], [address], [place]. tel:[phone] [facility], [address], [place], [place], [address] , [place] tel: [phone] [facility] Other and unspecified hyperlipidemiaOTH ER ABNORMAL GLUCOSEEsophageal refluxUnspecified vitamin b deficiencyOther dyspnea and respiratory abnormality 2 Chavez Bellanis. [address] [place] [address], [facility] [address] [place] [address], [id number]. tel:[phone] Referring Provider: Gio Reyes, [address] [place] [address] [place] [address], [address] . tel:[phone] [facility], [address], [place], [place], [address] , tel: [phone] [facility] No Information 2 Chavez Bellanis. [address] [place] [address], [facility] [address] [place] [address], [id number]. tel:[phone] [facility] [address], [place], [place], [address] , [place] tel: [phone] [facility] OTHER ABNORMAL GLUCOSEOther and unspecified hyperlipidemiaEso phageal refluxUnspecified vitamin b deficiencyOTHER ABNORMAL GLUCOSE 2 Byrnemarielena Bellanis. [address] [place] [address], [facility] [address] [place] [address], [id number]. [phone] Referring Provider: Gio Reyes, [address] [place] [address] [place] [address], [address] . tel:[phone] [facility], [address], [place], [place], [address] , tel: [phone] [facility] Spasm of muscleOther and unspecified hyperlipidemiaUns pecified vitamin b deficiencyEsophag eal refluxLUMBAGO 2 Chavez Powers. [address] [place] [address], [facility] [address] [place] [address], [id number]. tel:[phone] Referring Provider: Gio Reyes, [address] [place] [address] [address], [place], [address] . tel:[phone] [facility], [address], [place], [place], [address] , tel: [phone] [facility] Unspecified vitamin b deficiencyRoutine general medical examination at a health care facility 1 Chavez Powers. [address] [place] [address], [facility] [address] [place] [address], [id number]. tel:[phone] Referring Provider: Gio Reyes, [address] [place] [address] [address], [place], [address] . tel:[phone] [facility], [address], [place], [place], [address] , tel: [phone] [facility] Unspecified vitamin b deficiency 1 Chavez Powers. [address] [place] [address], [facility] [address] [place] [address], [id number]. tel:[phone] [facility], [address], [place], [place], [address] , [place] tel: [phone] [facility] B-COMPLEX DEFIC NECHYPERLIPIDEMIA NEC/NOSLONG-TERM USE MEDS NECSCREEN-DIABETE S MELLITUS 1 Chavez Powers. [address] [place] [address], [facility] [address] [place] [address], [id number]. [phone] [facility], [address], [place], [place], [address] , [place] tel: [phone] [facility] MALAISE AND FATIGUE NECIMPAIRED FASTING GLUCOSEMYALGIA AND MYOSITIS NOSABDMNAL PAIN EPIGASTRIC Aravind-0 8-201 0 Chavez Powers. [facility], [facility] [address], [place], [place], [address]. tel: [phone] [facility], [address], [place], [place], [address] , [place] tel:[phone] [facility] TENSION HEADACHEDIZZINESS AND GIDDINESS Mar-0 8-201 0 Chavez Powers. [address] [place] [address], [facility] [address], [place], [place], [address]. tel: [phone] [facility], [address], [place], [place], [address] , [place] tel: [phone] [facility] CERVICALGIACOUGH Feb-0 3-201 0 Chavez Powers. [address] [place] [address], [facility] [address], [place], [place], [address]. tel: [phone] [facility], [address], [place], [place], [address] , [place] tel:[phone] [facility] ESOPHAGEAL REFLUXABDMNAL PAIN GENERALIZED Fuad-1 0-200 9 Chavez Powers. [address] [place] [address], [facility] [address], [place], [place], [address]. tel: [phone] [facility], [address], [place], [place], [address] , [place] tel: [phone] [facility] HYPOPOTASSEMIAINT ESTINAL OBSTRUCT NOS Aug-0 4-200 8 Chavez Powers. [address] [place] [address], [facility] [address] [place] [address], [id number]. tel: [phone] [facility], [address], [place], [place], [address] , [place] tel: [phone] [facility] LUMBAGO Nov-0 6-200 7 Rajinder Craig. [address] , [address], [place], [place], [address], [place]. tel:[phone] [facility], [address], [place], [place], [address] , [place] tel: [phone] [facility] CHEST PAIN NOS Nov-0 6-200 7 Chavez Powers. [address] [place] [address], [facility] [address], [place], [place], [address]. tel:[phone] [facility], [address], [place], [place], [address] , [place] tel: [phone] [facility] MIXED HYPERLIPIDEMIAREC KT & ANAL HEMORRHAGESCREEN- DEFIC ANEMIA NEC Gerhard-0 5-200 7 Chavez Powers. [address] [place] [address], [facility] [address], [place], [place], [address]. tel:[phone] [facility], [address], [place], [place], [address] , [place] tel: [phone] [facility] URIN TRACT INFECTION NOSHEMATURIA Sep-0 6-200 5 Chavez Powers. [address] [place] [address], [facility] [address], [place], [place], [address]. tel:[phone] [facility], [address], [place], [place], [address] , [place] tel: [phone] [facility] No Information Mar-1 4-200 5 Chavez Powers. [address] [place] [address], [facility] [address], [place], [place], [address]. tel:[phone] [facility], [address], [place], [place], [address] , [place] tel: [phone] [facility] ABDMNAL PAIN UNSPCF SITEDEPRESSIVE DISORDER NEC Mar-0 1-200 5 Chavez Powers. [address] [place] [address], [facility] [address], [place], [place], [address]. tel:[phone] [facility], [address], [place], [place], [address] , [place] tel: [phone] [facility] No Information Dec-2 9-200 4 Chavez Powers. [address] [place] [address], [facility] [address], [place], [place], [address]. tel:[phone] [facility], [address], [place], [place], [address] , [place] tel: [phone] [facility] DYSURIASCIATICA Dec-2 8-200 4 Chavez Powers. [address] [facility], [facility] [address], [place], [place], [address]. tel:[phone] [facility], [address], [place], [place], [address] , [place] tel: [phone] [facility] PAIN IN LIMB Oct-0 5-200 4 Conversion Doctor. [address] [place] [address], [address], [place]. [facility], [address], [place], [place], [address] , tel: [phone] [facility] PALPITATIONS Sep-0 9-200 4 Chavez Powers. [address] [place] [address], [facility] [address], [place], [place], [address]. tel:[phone] [facility], [address], [place], [place], [address] , [place] tel: [phone] [facility] DIAPHRAGMATIC HERNIAVACCINATION FOR TD-DT Nov-2 7-200 4 Chavez Powers. [address] [place] [address], [facility] [address], [place], [place], [address]. tel:[phone] [facility], [address], [place], [place], [address] , [place] tel: [phone] [facility] RHEUMATOID ARTHRITIS Apr-2 8-200 3 Chavez Powers. [facility], [facility] [address], [place], [place], [address]. tel:[phone] [facility], [address], [place], [place], [address] , [place] tel: [phone] [facility] CHEST PAIN NEC Aug-2 0-200 2 Chavez Powers. [address] [place] [address], [facility] [address], [place], [place], [address]. tel:[phone] Family History Family Member Type Diagnosis Age At Onset No Information Immunizations Vaccine Date Status Comments 09789 - TD administered Source: Source Unspecified Payers Payer name Insurance type Covered libertarian ID Authoriza tipaul(s) BCBS INACTIVE OUT OF STATE [id number] Social History Type Description Quantity Date Captured [...]
--- OUTSIDE RECORDS SUMMARY | 2024-06-14 07:26 | XMS_ITS | Encounter Summary ---
Author Organization [facility] Address [address] [place] [address]. [place], [place] [address] [place] [address] Care Team Providers Care Sprinkler Installer Name Role Phone Yari Dow Primary Care Provider [phone] Encounter Details Date Type Department Care Team (Late st Contact Info) Description 10/06/2023 Mompery Message [facility] [phone] Shamir Lema MD [facility] [address] [place] [id number] Labs Social History Tobacco Use Types Packs/Day [...] on file documented as of this encounter Progress Notes * Estrella Sharpe RN - 10/06/2023 10:17 AM CDT When do you want lipid panel drawn? documented in this encounter Plan of Treatment Upcoming Encounters Date Type Department Care Team (Late st Contact Info) Description 06/19/2024 9:40 AM MANAGER INTERFACE Office Visit [facility] Internal Medicine - [place] [address] [place] [phone] Yari Dow APNP [address] [place] [address] 06/28/2024 11:40 AM MANAGER INTERFACE Office Visit [facility] Multispecialty Care - [facility] [address] [facility] [address] [place] [address] Brant Madera MD [address] [facility] [address] [place] [address] 10/04/2024 9:45 AM CDT Office Visit [place] [facility]-[address] [phone] Shamir Lema MD Three [facility] [address] [place] [address] documented as of this encounter Visit Diagnoses Not on filedocumented in this encounter Additional Health Concerns Assessment Noted Time PHQ-9 Depression Total Score: 2 10/26/19 23 10:25 AM CDT documented as of this encounter Care Teams Sprinkler Installer Relationship Specialty Start Date End Date Yari Dow APNP [address] [place] [address] PCP - General NURSE PRACTITIONER 04/25/18 documented as of this encounter
--- OUTSIDE RECORDS SUMMARY | 2024-06-14 07:27 | XMS_ITS | Encounter Summary ---
Author Organization [facility] Address [address] [place] [address]. [place], [place] [address] [place] [address] Care Team Providers Care Plumbing Assembler Name Role Phone Yari Dow Primary Care Provider [phone] Encounter Details Date Type Department Care Team (Late Contact Info) Description 01/04/2023 World Vital Recordst Message Enc [facility] Family & Internal Medicine [facility] [address] [place] [phone] Yari Dow APNP [address] [place], [place] [phone] Stomach pain Social History Tobacco Use Types Packs/Day Years [...] (Late Contact Info) Description 06/19/2024 9:40 AM TIME STUDY CLERK Office Visit [facility] Family & Internal Medicine - [place] [address] [place] [address] Yari Dow APNP [address] [place] [address] 06/28/2024 11:40 AM TIME STUDY CLERK Office Visit [facility] Multispecialty Care - [facility] [address] [facility] [address] [place] [address] Brant Madera MD [address] [facility] [address] [place] [address] 10/04/2024 9:45 AM CDT Office Visit [facility] [address] [place] [phone] Shamir Lema MD Three [facility] [address] [place] [address] documented as of this encounter Visit Diagnoses Not on filedocumented in this encounter Additional Health Concerns Assessment Noted Time PHQ-9 Depression Total Score: 2 10/26/19 23 10:25 AM CDT documented as of this encounter Care Teams Plumbing Assembler Relationship Specialty Start Date End Date Yari Dow APNP [address] [place] [address] PCP - General NURSE PRACTITIONER 04/25/18 documented as of this encounter
--- OUTSIDE RECORDS SUMMARY | 2024-06-14 07:27 | XMS_ITS | Encounter Summary ---
Author Organization [facility] Address [address] [place] [address]. [place], [place] [address] [place] [address] Care Team Providers Care Car Hop Name Role Phone Yari Dow Primary Care Provider [phone] Encounter Details Date Type Department Care Team (Late Contact Info) Description 09/22/2022 Ozura Worldhart Message Enc [facility] Family [facility] [address] [place] [address] Yari Dow APNP [address] [place], [place] [phone] Mri results Social History Tobacco Use Types Packs/Day Years [...] suspected to have Coronavirus/COVID-19? No / Unsure 09/13/2022 11:58 AM CDT documented as of this encounter Plan of Treatment Upcoming Encounters Date Type Department Care Team (Late st Contact Info) Description 06/19/2024 9:40 AM ACID MIXER Office Visit [facility] Family & Internal Medicine - [place] [address] [place] [phone] Yari Dow APNP [address] [place] [address] 06/28/2024 11:40 AM ACID MIXER Office Visit [facility] Multispecialty Care - [facility] [address] [facility] [address] [place] [address] Brant Madera MD [address] [facility] [address] [place] [address] 10/04/2024 9:45 AM CDT Office Visit [place] [facility]-[address] [phone] Shamir Lema MD Three [facility] [address] [place] [address] documented as of this encounter Visit Diagnoses Not on filedocumented in this encounter Additional Health Concerns Assessment Noted Time PHQ-9 Depression Total Score: 4 07/01/19 23 2:18 PM ACID MIXER documented as of this encounter Care Teams Car Hop Relationship Specialty Start Date End Date Yari Dow APNP [address] [place] [address] PCP - General NURSE PRACTITIONER 04/25/18 documented as of this encounter
--- OUTSIDE RECORDS SUMMARY | 2024-06-14 07:28 | XMS_ITS | Encounter Summary ---
Author Organization [facility] Address [address] [place] [address] Care Team Providers Care Manager Analytical Name Role Phone Yari Dow Primary Care Provider + Gege Al MD Unavailable [phone] Reason for Referral * Diagnostic Imaging (Routine) - Authorized Specialty Diagnoses / Procedures Referred By Contac t Referred To Contact Diagnoses Lumbar radicular pain Procedures Imaging Lumbar/Caudal Epidural Steroid INJ ([address]) Gege Al MD [address] [place] [address] Phone: tel: fax: [address] [phone] Referral ID Status Reason Start Date Expiration Date V isits Requested Visits Authorized [id number] Authorized 06/13/2024 07/13/2025 1 1 INE CLOTH MEASURER Reason for Visit * Reason Comments Back Pain Follow-up Encounter Details Date Type Department Care Team (Latest Contact Info) Description 06/13/2024 10:05 AM MACHINE CLOTH MEASURER - 06/13/2024 11:59 PM MACHINE CLOTH MEASURER Hospital Encounter [facility] at [facility] [address] [facility] 1st [place] [phone] Gege Al MD [address] [place] [address] Lumbar radicular pain (Primary Dx) Discharge Disposition: Discharge to home or self care Social History Tobacco Use Types Packs/Day Years Used Date Smoking Tobacco: Never Alcohol Use Standard Drinks/Week Comments Yes 0 (1 standard drink = 0.6 oz pur e alcohol) 0-1 glass of wine per month AUDIT-C Answer Date Recorded Q1: How often do you have a drink containing alcohol? Never 10/12/2023 Q2: How many drinks containi ng alcohol do you have on a typical day when you are drinking? Patient does not drink Q3: How often do you have si x or more drinks on one occasion? Never 10/12/2023 Personal Safety Answer Date Recorded Have you ever been in or are you currently in a harmful physical or emotional relationship or is someone making you feel afraid or unsafe? Denies 11/02/2023 Comments No Sex and Gender Information Value Date Recorded Sex Assigned at Not on file Legal Sex Female 4:12 AM MACHINE CLOTH MEASURER Gender Identity Female 06/13/2022 6:33 PM MACHINE CLOTH MEASURER Sexual Orientation Straight 06/13/2022 6: 33 PM MACHINE CLOTH MEASURER documented as of this encounter Last Filed Vital Signs Vital Sign Reading Time Taken Comments Blood Pressure 181/83 06/13/2024 10:09 AM MACHINE CLOTH MEASURER Pulse 76 06/13/2024 10:09 AM MACHINE CLOTH MEASURER Temperature 36.4 ??C (97.6 ??F) 06/13/2024 10:[address] Respiratory Rate 16 06/13/2024 10:09 AM MACHINE CLOTH MEASURER Oxygen Saturation 98% 06/13/2024 10:09 AM MACHINE CLOTH MEASURER Inhaled Oxygen Concentration - - Weight - - Height - - Body Mass Index - - documented in this encounter Discharge Instructions * Patient Instructions* Elisabeth Degroot, MARTHA - 06/13/2024 10:15 AM MACHINE CLOTH MEASURER PAIN MANAGEMENT [facility] DISCHARGE INFORMATION PLAN / NEW ORDERS: Follow up for Caudal Injection Medrol Dose Pack sent to pharmacy [phone] Calls are accepted Monday-Monday, 7:30am-4pm, excluding observed holidays. We highly encourage the use of MyChart for non-urgent matters as well as prescription refill requests. If you are scheduled for an injection and have an active infection and/or feeling ill in any way, please contact the office for further instructions. MEDICATION REFILL REQUESTS: To allow timely scheduling of evaluations, please contact the office to schedule your appointment 6-8 weeks in advance. For all opioid/narcotic prescription refills and non-opioid/non-narcotic refills with no refills remaining, please contact the Pain Management Center 5-7 business days prior to the date of need to avoid any delays. Refills may be requested thru MyChart which is the preferred method for refill requests. Call [phone] and leave a message on the RN Message Line with the following information: Name, date of , and phone number Name(s) of the medication(s) needing refill Name and number for the pharmacy where the refill(s) should be sent Please note, prescription refill dates are calculated based on the quantity of medication provided,not the date on which the pharmacy filled the prescription. Patients whom are prescribed opioid medications are required to be evaluated at least once every three months or more frequently, as deemed appropriate by the prescribing provider. Patients who are prescribed non-opioid medications are required to be evaluated at least every 6 months or more frequently, as deemed appropriate by the prescribing provider. [] Physical Therapy Scheduling - [phone] [] Surgical Evaluation Center - [phone] (Surgical Eval Center will call to schedule your pre-op evaluation appt) [] Dr. Dickson and Dr. Vera - Pain Psychologist - [phone] [] MRI Scheduling - [phone] We encourage you to schedule at [facility] as our physicians work closely withthe Radiology Imaging Department and the physicians that read the images. In addition the images are of higher quality, and we receive the results quicker. If you choose to use an imaging location outside of [facility] You will need to bring the CD to the film library at [facility] prior to any future appointments. You will need to bring a copy of the report to your next appointment. Please notify us immediately with a message on our nurse line or by sending a ReTargeter message with the following: Location Location phone number Date your MRI is scheduled Please note that MRI authorizations may take up to 7-14 business days for determination. Pain Management will not fill out FMLA, workers compensation forms or disability forms. Please contact your primary care physician. Pain Management does not print or supply copies of medical records. Medical records may be requested thru [facility] medical records department [phone]. We strive to provide you with EXCELLENT service as our patient. You may receive a survey after your visit today. If you can not rate your experience as EXCELLENT, please let us know before you leave how we can improve and better meet your needs. Thank you for choosing [facility] / Pain Management! INE CLOTH MEASURER documented in this encounter Medications at Time of Discharge acetaminophen (TYLENOL) 500 mg tablet Take 1 tablet (500 mg total) by mouth every 6 (six) hours as needed for pain amLODIPine (NORVASC) 2.5 mg tablet Take 1 tablet (2.5 mg total) by mouth daily 02/22/2024 cholecalciferol (VITAMIN D-3) 1,000 unit capsule Take 3 capsules (3,000 Units total) by mouth daily clindamycin (CLEOCIN T) 1 % external solution 08/04/2023 famotidine (PEPCID) 20 mg tablet Take 1 tablet (20 mg total) by mouth daily 06/10/2020 methylPREDNISolo ne (MEDROL DOSEPACK) 4 mg Dosepack Take as directed on package 1 packet 06/13/2024 06/19/2024 TiZANidine (ZANAFLEX) 2 mg capsule Take 1-2 capsules (2-4 mg total) by mouth nightly as needed for muscle spasms 60 capsule 2 10/12/2023 documented as of this encounter Ordered Prescriptions Prescription Sig Dispense Quantity Refills Last Filled Start Date End Date methylPREDNISolone (MEDROL DOSEPACK) 4 mg Dosepack Take as directed on package 1 packet 06/13/2024 documented in this encounter Discharge Disposition Disposition Code Departure Means Destination Discharge to home or self care documented in this encounter Miscellaneous Notes * Perioperative Nursing Note - Elisabeth Degroot RN - 06/13/2024 10:15 AM CST Level 2 Escorted patient to exam room. Obtained vital signs. Reviewed patient's allergies and current medications. Obtained and verified patient's simple medical/surgical history. Confirmed the reason for visit with the patient. Obtained the following screening assessments: [x] Modified Oswestry Low Back Pain Questionnaire [x] PMC Intake Questionnaire [x] PMC Follow up Questionnaire [x] Fall Risk Assessment (Doris, Abeba Harris, [place]) [x] Depression/Anxiety Assessment (GAD7, PHQ-9, Ruby Suicide, Swan Depression) [x] Disability Scale [] CAGE [] SOAPP-R Additional tasks included: [] Random medication adherence check (pill verification by two nurses) [] Work/school note written [] Pended CT/MRI/MRA order [] Pain assessment for multiple sites [] Vital Signs Temp: 97.6 ??F (36.4 ??C) Pulse: 76 Resp: 16 BP: (!) 181/83 SpO2: 98 % Post-visit transport confirmed with the patient. Total time spent for patient care, education, and care coordination was approximately 11-20 minutes. INE CLOTH MEASURER documented in this encounter Plan of Treatment Scheduled Orders Name Type Priority Associated Diagnoses Orde r Schedule Imaging Lumbar/Caudal Epidural Steroid INJ (20570) Imaging Schedule Routine, Read Routine (OP Routine) Lumbar radicular pain Expected: 06/13/2024, Expires: 06/13/2025 documented as of this encounter Goals Goal Patient Goal Type Associated Problems Recent Progress Patient-Stated? Author CCM Chronic Pain Care Plan Chronic Care Management On track(2024 10:10 AM MACHINE CLOTH MEASURER) Shweta Ulrich, RN Note: Problem: Chronic Pain Goals: 1. Minimize further functional decline 2. Maximize quality of life 3. Control pain Strategies: - Activity/exercise program recommendation - Conservative stepwise pain medicine strategy with multi-disciplinary approach - Recommend healthy lifestyle strategies and compensatory methods as needed Reduce the likelihood of falling Lifestyle On track(2024 10:10 AM MACHINE CLOTH MEASURER) Shweta Ulrich, RN Note: Below are four things you can do to prevent falls: Begin an exercise program to improve your leg strength & balance Ask your doctor or pharmacist to review your medicines Get annual eye check-ups & update your eyeglasses Make your home safer by: Removing clutter & tripping hazards Putting railings on all stairs & adding grab bars in the bathroom Having good lighting, especially on stairs Contact your local community or [facility] for information on exercise, fall prevention programs, or options for improving home safety. documented as of this encounter Visit Diagnoses Diagnosis Lumbar radicular pain- Primary Thoracic or lumbosacral neuritis or radiculitis, unspecified documented in this encounter Care Teams Manager Analytical Relationship Specialty Start Date End Date Yari Dow PA PCP - General 11/03/17 Gege Al MD Consulting Physician Pain Management 12/08/22 documented as of this encounter
--- OUTSIDE RECORDS SUMMARY | 2024-06-14 07:29 | XMS_ITS | Clinical Summary ---
Author Organization [facility] Address [address] [place] [address] Care Team Providers Care Water Fabricator Operator Name Role Phone Yari Dow Primary Care Provider + Gege Al MD Unavailable Allergies Active Allergy Reactions Criticality Noted Date Comments Rosuvastatin Other (See comments) Low 09/22/2023 Light headednessay Sulfa (Sulfonamide Antibiotics) Rash Medium 03/13/2017 Sulfur Iodide Rash Medium 04/27/2020 Medications cholecalciferol (VITAMIN D-3) 1,000 unit capsule Take 3 capsules (3,000 Units total) by mouth daily Active famotidine (PEPCID) 20 mg tablet Take 1 tablet (20 mg total) by mouth daily 1 Active acetaminophen (TYLENOL) 500 mg tablet Take 1 tablet (500 mg total) by mouth every 6 (six) hours as needed for pain Active clindamycin (CLEOCIN T) 1 % external solution 4 Active TiZANidine (ZANAFLEX) 2 mg capsule Take 1-2 capsules (2-4 mg total) by mouth nightly as needed for muscle spasms 60 capsule 2 4 Active Additional Information Patient not taking.Reported on 06/13/2024 amLODIPine (NORVASC) 2.5 mg tablet Take 1 tablet (2.5 mg total) by mouth daily 4 Active methylPREDNISol one (MEDROL DOSEPACK) 4 mg Dosepack Take as directed on package 1 packet 01/06/19/19 Active Active Problems Problem Noted Date Diagnosed Date Urinary tract infectious disease 10/12/2023 Osteoarthritis of right knee 11/09/2022 Myalgia 10/18/2022 10/18/2022 Osteoarthrosis 10/18/2022 10/18/2022 Arthralgia of right knee 06/08/2021 Pain of right hip joint 06/08/2021 Peroneal tendinitis 04/17/2018 GERD (gastroesophageal reflux disease) 8 Vertigo 06/22/2017 Hyperglycemia 04/30/2017 Diastolic dysfunction 03/18/2016 Overview (08/25/2016): Diastolic dysfunction Hyperlipidemia 03/18/2016 Overview (08/25/2016): Hyperlipidemia, unspecified Morbid obesity 03/18/2016 Overview (08/25/2016): Morbid obesity due to excess calories Obstructive sleep apnea syndrome 03/18/2016 Overview (08/25/2016): ROHITH (obstructive sleep apnea) Encounters Date Type Department Care Team Description 06/13/2024 10:05 AM PACKING ROOM INSPECTOR - 06/13/2024 11:59 PM PACKING ROOM INSPECTOR Hospital Encounter [facility] [address] [facility] 1st [place] [address] Gege Al MD Lumbar radicular pain (Primary Dx) Discharge Disposition: Discharge to home or self care 05/28/2024 11:26 AM PACKING ROOM INSPECTOR - 05/28/2024 11:59 PM PACKING ROOM INSPECTOR Hospital Encounter [facility] [address] [place] [phone] Encounter for screening for malignant neoplasm of breast, unspecified screening modality; Abnormal mammogram of left breast Discharge Disposition: Discharge to home or self care 05/28/2024 10:18 AM PACKING ROOM INSPECTOR - 05/28/2024 11:59 PM PACKING ROOM INSPECTOR Hospital Encounter [facility] [address] [place] [phone] Encounter for screening for malignant neoplasm of breast, unspecified screening modality; Abnormal mammogram of left breast Discharge Disposition: Discharge to home or self care from Last 3 Months Immunizations Name Administration Dates Next Due Influenza, Quadrivalent, Hig h Dose, Preservative Free, Intrr 02/01/2020 Influenza, Trivalent, High D ose, Split, Preservative Free, Intramuscular 05/02/2019 Influenza, Unspecified 02/12/2019 [employer] ([employer]) SARS-CoV-2 Vaccination 07/26/2020, 07/13/2020 Pneumococcal Conjugate PCV 13 02/16/2019 Pneumococcal Polysaccharide PPV23 03/24/2020 ZOSTER Recombinant 06/04/2019,02/16/2019 Surgical History Surgery Date Site/Laterality Comments NEPHRECTOMY 12/13/2020 - 01/12/2021 SPINAL FUSION 05/15/2017 - 05/14/2018 HYSTERECTOMY 05/15/1993 - 05/14/1994 BLADDER SUSPENSION 05/15/1993 - 05/14/1994 LIPOMA RESECTION 05/15/2021 - 05/14/2022 REPLACEMENT TOTAL KNEE 05/15/2016 - 05/14/2017 Medical History Medical History Date Comments Hx Other Medical Bladder suspens ion; Comments: TYW 03/18/2016 - Hx Other Medical Osteoarthritis all over. ; Comments: ELU 03/18/2016 - Hx Other Medical spinal stenosis , sleep apnea; Comments: ELU 03/18/2016 - Cancer (CMS/HCC) (HCC) Cervical disc disease Cervical stenosis (uterine cervix) Gastric reflux Hypertension Disc disorder of lumbar region Lumbar stenosis Osteoarthritis Low back pain Family History Medical History Relation Name Comments Diabetes Brother 2 Other Brother 2 DM, Etoh and dr ug abuse, suddenly; Cause of : DM, Etoh and drug abuse, suddenly Heart disease Father Hypertension Father Other Father Had pacer, of SCD; Cause of : Had pacer, of SCD Heart disease Mother Heart disease; [facility] 03/18/2016 -Smoked, no VA or surgery. Her siblings before she did also of heart disease. Hypertension Mother Stroke Mother Cancer Sister Cancer, unknown ; Relation Name Status Comments Brother 1 Brother 2 Father Mother Sister Social History Tobacco Use Types Packs/Day Years Used Date Smoking Tobacco: Never Tobacco Cessation:Counseling Given: Not Answered Alcohol Use Standard Drinks/Week Comments Yes 0 [...] on file Legal Sex Female 4:12 AM PACKING ROOM INSPECTOR Gender Identity Female 06/13/2022 6:33 PM PACKING ROOM INSPECTOR Sexual Orientation Straight 06/13/2022 6: 33 PM PACKING ROOM INSPECTOR Obstetrics History Last Filed Vital Signs Vital Sign Reading Time Taken Comments Blood Pressure 181/83 06/13/2024 10:09 AM PACKING ROOM INSPECTOR Pulse 76 06/13/2024 10:09 AM PACKING ROOM INSPECTOR Temperature 36.4 ??C (97.6 ??F) 06/13/2024 1 0:09 AM PACKING ROOM INSPECTOR Respiratory Rate 16 06/13/2024 10:0 9 AM PACKING ROOM INSPECTOR Oxygen Saturation 98% 06/13/2024 10: 09 AM PACKING ROOM INSPECTOR Inhaled Oxygen Concentration - - Weight 106.2 kg (234 lb 2.1 oz) 11/02/2023 5:59 PM CDT Height 157.5 cm (5' 2 ) 11/02/2023 5:59 PM CDT Body Mass Index 42.82 11/02/2023 5:59 PM CDT Plan of Treatment Health Maintenance Due Date Last Done Comments Colon Cancer Screening-Colonoscopy 1955 Depression Screening 1955 Hepatitis C Screening 1955 DTaP/Tdap/Td Vaccine (1 - Tdap) 1965 Hepatitis B Screening 01/16/1972 Well Visit 65+ 2019 Osteoporosis Screening-Bone Density Scan 02/02/2022 02/03/2020 Covid-19 Vaccine (3 - 2023-2 5 season) 2024 07/26/2020, 07/13/2020 Influenza Vaccine (#1) 2024 0, 05/02/2019, 02/12/2019 Breast Cancer Screening-Mammogram 05/28/2025 05/28/2024, 04/04/2023, 04/01/2022, Additional history exists Fall Risk Assessment 06/13/2025 06/13/2024, 03/05/2024, 02/05/2024, Additional history exists Zoster Vaccine Completed 06/04/2019, 02/16/2019 Pneumococcal vaccine 65+ Completed 03/24/2020, 09/2018 Goals Goal Patient Goal Type Associated Problems Recent Progress Patient-Stated? Author CCM Chronic Pain Care Plan Chronic Care Management On track(2024 10:10 AM PACKING ROOM INSPECTOR) Shweta Ulrich, RN Note: Problem: Chronic Pain Goals: 1. Minimize further functional decline 2. Maximize quality of life 3. Control pain Strategies: - Activity/exercise program recommendation - Conservative stepwise pain medicine strategy with multi-disciplinary approach - Recommend healthy lifestyle strategies and compensatory methods as needed Reduce the likelihood of falling Lifestyle On track(2024 10:10 AM PACKING ROOM INSPECTOR) Shweta Ulrich, RN Note: Below are four [...] on stairs Contact your local community or senior [place] for information on exercise, fall prevention programs, or options for improving home safety. Procedures Procedure Name Priority Date/Time Associated Diagnosis Comments US BREAST LEFT LIMITED Schedule Routine, Read Routine (OP Routine) 05/28/2024 11:50 AM PACKING ROOM INSPECTOR Encounter for screening for malignant neoplasm of breast, unspecified screening modality Abnormal mammogram of left breast DIAGNOSTIC MAMMOGRAM BILATERAL W TORI Schedule Routine, Read Routine (OP Routine) 05/28/2024 11:23 AM PACKING ROOM INSPECTOR Encounter for screening for malignant neoplasm of breast, unspecified screening modality Abnormal mammogram of left breast from Last 3 Months Results * US Breast Left Limited (05/28/2024 11:50 AM PACKING ROOM INSPECTOR) Anatomical Region Laterality Modality Breast Left Ultrasound 05/28/2024 1:43 PM PACKING ROOM INSPECTOR Impressions 05/28/2024 1:43 PM PACKING ROOM INSPECTOR 1. ??Stable focal asymmetry within the upper central left breast, unchanged dating back to 2022 and probably benign. ??Follow-up in one year is recommended to demonstrate 2 years of stability. 2. ??No mammographic evidence of malignancy within the right breast. OVERALL FINAL ASSESSMENT: BI-RADS Category 3: Probably Benign. RECOMMENDATION: Recommend follow-up diagnostic breast imaging in 12 months with bilateral diagnostic mammography. Electronically signed by: Wendy Shelton M.D. Narrative 05/28/2024 1:43 PM PACKING ROOM INSPECTOR EXAMINATION: BILATERAL DIGITAL DIAGNOSTIC MAMMOGRAM INCLUDING CAD AND BILATERAL DIGITAL BREAST TOMOSYNTHESIS; LEFT BREAST SONOGRAM HISTORY: 69-year-old woman presents for follow-up of a probably benign left breast focal asymmetry for noted on screening mammogram 04/04/2023. COMPARISON: 11/20/2023 and priors dating back to 2014 TECHNIQUE: ?? Full field digital mammographic views of BOTH breasts were performed, including computer aided detection (CAD) and BILATERAL digital breast tomosynthesis (DBT). ??Directed ultrasound evaluation of the LEFT breast was performed. BREAST PARENCHYMAL COMPOSITION: The breasts are almost entirely fatty. MAMMOGRAM FINDINGS: On spot compression images, there is a persistent 5 mm focal asymmetry/oval mass in the upper central left breast at mid depth, unchanged dating back to 2022. ??There is no new suspicious mass, grouped calcifications, architectural distortion noted within either breast. ?? SONOGRAM FINDINGS: Targeted sonographic images in the left breast the 12:00 location 3 to 7 cm from the nipple demonstrates benign-appearing fibroglandular breast tissue without mass noted to correlate with mammographic finding. ?? Procedure Note Wendy Shelton MD - 05/28/2024 EXAMINATION: BILATERAL DIGITAL DIAGNOSTIC MAMMOGRAM INCLUDING CAD AND BILATERAL DIGITAL BREAST TOMOSYNTHESIS; LEFT BREAST SONOGRAM HISTORY: 69-year-old woman presents for follow-up of a probably benign left breast focal asymmetry for noted on screening mammogram 04/04/2023. COMPARISON: 11/20/2023 and priors dating back to 2014 TECHNIQUE: Full field digital mammographic views of BOTH breasts were performed, including computer aided detection (CAD) and BILATERAL digital breast tomosynthesis (DBT). Directed ultrasound evaluation of the LEFT breast was performed. BREAST PARENCHYMAL COMPOSITION: The breasts are almost entirely fatty. MAMMOGRAM FINDINGS: On spot compression images, there is a persistent 5 mm focal asymmetry/oval mass in the upper central left breast at mid depth, unchanged dating back to 2022. There is no new suspicious mass, grouped calcifications, architectural distortion noted within either breast. SONOGRAM FINDINGS: Targeted sonographic images in the left breast the 12:00 location 3 to 7 cm from the nipple demonstrates benign-appearing fibroglandular breast tissue without mass noted to correlate with mammographic finding. IMPRESSION: 1. Stable focal asymmetry within the upper central left breast, unchanged dating back to 2022 and probably benign. Follow-up in one year is recommended to demonstrate 2 years of stability. 2. No mammographic evidence of malignancy within the right breast. OVERALL FINAL ASSESSMENT: BI-RADS Category 3: Probably Benign. RECOMMENDATION: Recommend follow-up diagnostic breast imaging in 12 months with bilateral diagnostic mammography. Electronically signed by: Wendy Shelton M.D. Yari JURADO IM MAMMO PROCEDURES [facility] al Result * Diagnostic Mammogram Bilateral W Tori (05/28/2024 11:23 AM PACKING ROOM INSPECTOR) Anatomical Region Laterality Modality Breast Bilateral Mammography 05/28/2024 1:43 PM PACKING ROOM INSPECTOR Impressions 05/28/2024 1:43 PM PACKING ROOM INSPECTOR 1. ??Stable focal asymmetry within the upper central left breast, unchanged dating back to 2022 and probably benign. ??Follow-up in one year is recommended to demonstrate 2 years of stability. 2. ??No mammographic evidence of malignancy within the right breast. OVERALL FINAL ASSESSMENT: BI-RADS Category 3: Probably Benign. RECOMMENDATION: Recommend follow-up diagnostic breast imaging in 12 months with bilateral diagnostic mammography. Electronically signed by: Wendy Shelton M.D. Narrative 05/28/2024 1:43 PM PACKING ROOM INSPECTOR EXAMINATION: BILATERAL DIGITAL DIAGNOSTIC MAMMOGRAM INCLUDING CAD AND BILATERAL DIGITAL BREAST TOMOSYNTHESIS; LEFT BREAST SONOGRAM HISTORY: 69-year-old woman presents for follow-up of a probably benign left breast focal asymmetry for noted on screening mammogram 04/04/2023. COMPARISON: 11/20/2023 and priors dating back to 2014 TECHNIQUE: ?? Full field digital mammographic views of BOTH breasts were performed, including computer aided detection (CAD) and BILATERAL digital breast tomosynthesis (DBT). ??Directed ultrasound evaluation of the LEFT breast was performed. BREAST PARENCHYMAL COMPOSITION: The breasts are almost entirely fatty. MAMMOGRAM FINDINGS: On spot compression images, there is a persistent 5 mm focal asymmetry/oval mass in the upper central left breast at mid depth, unchanged dating back to 2022. ??There is no new suspicious mass, grouped calcifications, architectural distortion noted within either breast. ?? SONOGRAM FINDINGS: Targeted sonographic images in the left breast the 12:00 location 3 to 7 cm from the nipple demonstrates benign-appearing fibroglandular breast tissue without mass noted to correlate with mammographic finding. ?? Procedure Note Wendy Shelton MD - 05/28/2024 EXAMINATION: BILATERAL DIGITAL DIAGNOSTIC MAMMOGRAM INCLUDING CAD AND BILATERAL DIGITAL BREAST TOMOSYNTHESIS; LEFT BREAST SONOGRAM HISTORY: 69-year-old woman presents for follow-up of a probably benign left breast focal asymmetry for noted on screening mammogram 04/04/2023. COMPARISON: 11/20/2023 and priors dating back to 2014 TECHNIQUE: Full field digital mammographic views of BOTH breasts were performed, including computer aided detection (CAD) and BILATERAL digital breast tomosynthesis (DBT). Directed ultrasound evaluation of the LEFT breast was performed. BREAST PARENCHYMAL COMPOSITION: The breasts are almost entirely fatty. MAMMOGRAM FINDINGS: On spot compression images, there is a persistent 5 mm focal asymmetry/oval mass in the upper central left breast at mid depth, unchanged dating back to 2022. There is no new suspicious mass, grouped calcifications, architectural distortion noted within either breast. SONOGRAM FINDINGS: Targeted sonographic images in the left breast the 12:00 location 3 to 7 cm from the nipple demonstrates benign-appearing fibroglandular breast tissue without mass noted to correlate with mammographic finding. IMPRESSION: 1. Stable focal asymmetry within the upper central left breast, unchanged dating back to 2022 and probably benign. Follow-up in one year is recommended to demonstrate 2 years of stability. 2. No mammographic evidence of malignancy within the right breast. OVERALL FINAL ASSESSMENT: BI-RADS Category 3: Probably Benign. RECOMMENDATION: Recommend follow-up diagnostic breast imaging in 12 months with bilateral diagnostic mammography. Electronically signed by: Wendy Shelton M.D. Yari JURADO IM MAMMO PROCEDURES Fin al Result from Last 3 Months Insurance MEDICARE SOLUTIONS [place] [employer] [facility] ACCESS [place] [facility] MDCR HMO REF MEDICARE SOLUTIONS Care Teams Water Fabricator Operator Relationship Specialty Start Date End Date Yari Dow PA PCP - General 11/03/17 Gege Al MD Consulting Physician Pain Management 12/08/22
--- OUTSIDE RECORDS SUMMARY | 2024-06-14 07:29 | XMS_ITS | Referral Summary ---
Author Organization [facility] Address [address] [place] [address] Care Team Providers Care Maintenance Man Name Role Phone Yari Dow Primary Care Provider + Gege Al MD Unavailable [phone] Encounters Date Type Department Care Team Description 06/13/2024 10:05 AM PUBLICITY CONSULTANT - 06/13/2024 11:59 PM PUBLICITY CONSULTANT Hospital Encounter [facility] [address] [facility] 1st [place] [id number] Gege Al MD Lumbar radicular pain (Primary Dx) Discharge Disposition: Discharge to home or self care 05/28/2024 11:26 AM PUBLICITY CONSULTANT - 05/28/2024 11:59 PM PUBLICITY CONSULTANT Hospital Encounter [facility] ([facility]) [address] [place] [phone] Encounter for screening for malignant neoplasm of breast, unspecified screening modality; Abnormal mammogram of left breast Discharge Disposition: Discharge to home or self care 05/28/2024 10:18 AM PUBLICITY CONSULTANT - 05/28/2024 11:59 PM PUBLICITY CONSULTANT Hospital Encounter [facility] ([facility]) [address] [place] [phone] Encounter for screening for malignant neoplasm of breast, unspecified screening modality; Abnormal mammogram of left breast Discharge Disposition: Discharge to home or self care from Last 3 Months Allergies Active Allergy Reactions Criticality Noted Date [...] Take as directed on package 1 packet 5 06/19/19 Active Active Problems Problem Noted Date Diagnosed [...] 03/18/2016 Overview (08/25/2016): ROHITH (obstructive sleep apnea) Immunizations Name Administration Dates Next Due Influenza, Quadrivalent, Hig h Dose, Preservative Free, Intrr 02/01/2020 Influenza, Trivalent, High D ose, Split, Preservative Free, Intramuscular 05/02/2019 Influenza, Unspecified 02/12/2019 [employer] (J[employer]J) SARS-CoV-2 Vaccination 07/26/2020, 07/13/2020 Pneumococcal Conjugate PCV 13 02/16/2019 Pneumococcal Polysaccharide PPV23 03/24/2020 ZOSTER Recombinant 06/04/2019,02/16/2019 Social History Tobacco Use Types Packs/Day Years [...] on file Legal Sex Female 4:12 AM PUBLICITY CONSULTANT Gender Identity Female 06/13/2022 6:33 PM PUBLICITY CONSULTANT Sexual Orientation Straight 06/13/2022 6: 33 PM PUBLICITY CONSULTANT Last Filed Vital Signs Vital Sign Reading Time Taken Comments Blood Pressure 181/83 06/13/2024 10:09 AM PUBLICITY CONSULTANT Pulse 76 06/13/2024 10:09 AM PUBLICITY CONSULTANT Temperature 36.4 ??C (97.6 ??F) 06/13/2024 1 0:09 AM PUBLICITY CONSULTANT Respiratory Rate 16 06/13/2024 10:0 9 AM PUBLICITY CONSULTANT Oxygen Saturation 98% 06/13/2024 10: 09 AM PUBLICITY CONSULTANT Inhaled Oxygen Concentration - - Weight 106.2 kg (234 lb 2.1 oz) 11/02/2023 5:59 PM CDT Height 157.5 cm (5' 2 ) 11/02/2023 5:59 PM CDT Body Mass Index 42.82 11/02/2023 5:59 PM CDT Plan of Treatment Not on file Goals Goal Patient Goal Type Associated Problems Recent Progress Patient-Stated? Author CCM Chronic Pain Care Plan Chronic Care Management On track(2024 10:10 AM PUBLICITY CONSULTANT) Shweta Ulrich, RN Note: Problem: Chronic Pain Goals: 1. Minimize further functional decline 2. Maximize quality of life 3. Control pain Strategies: - Activity/exercise program recommendation - Conservative stepwise pain medicine strategy with multi-disciplinary approach - Recommend healthy lifestyle strategies and compensatory methods as needed Reduce the likelihood of falling Lifestyle On track(2024 10:10 AM PUBLICITY CONSULTANT) Shweta Ulrich, RN Note: Below are four [...] stairs Contact your local community or senior [place] for information on exercise, fall prevention programs, or options for improving home safety. Procedures Procedure Name Priority Date/Time Associated Diagnosis Comments US BREAST LEFT LIMITED Schedule Routine, Read Routine (OP Routine) 05/28/2024 11:50 AM PUBLICITY CONSULTANT Encounter for screening for malignant neoplasm of breast, unspecified screening modality Abnormal mammogram of left breast DIAGNOSTIC MAMMOGRAM BILATERAL W JUAN FRANCISCO Schedule Routine, Read Routine (OP Routine) 05/28/2024 11:23 AM PUBLICITY CONSULTANT Encounter for screening for malignant neoplasm of breast, unspecified screening modality Abnormal mammogram of left breast from Last 3 Months Results * US Breast Left Limited (05/28/2024 11:50 AM PUBLICITY CONSULTANT) Anatomical Region Laterality Modality Breast Left Ultrasound 05/28/2024 1:43 PM PUBLICITY CONSULTANT Impressions 05/28/2024 1:43 PM PUBLICITY CONSULTANT 1. ??Stable focal asymmetry within the upper [...] bilateral diagnostic mammography. Electronically signed by: Wendy Sehlton M.D. Narrative 05/28/2024 1:43 PM PUBLICITY CONSULTANT EXAMINATION: BILATERAL DIGITAL DIAGNOSTIC MAMMOGRAM INCLUDING CAD [...] signed by: Wendy Shelton M.D. Yari JURADO IMG MAMMO PROCEDURES Fin al Result * Diagnostic Mammogram Bilateral W Juan Francisco (05/28/2024 11:23 AM PUBLICITY CONSULTANT) Anatomical Region Laterality Modality Breast Bilateral Mammography 05/28/2024 1:43 PM PUBLICITY CONSULTANT Impressions 05/28/2024 1:43 PM PUBLICITY CONSULTANT 1. ??Stable focal asymmetry within the upper [...] Wendy Shelton M.D. Narrative 05/28/2024 1:43 PM PUBLICITY CONSULTANT EXAMINATION: BILATERAL DIGITAL DIAGNOSTIC MAMMOGRAM INCLUDING CAD [...] from Last 3 Months Insurance MEDICARE SOLUTIONS [employer] [facility] Member Subscriber Plan / Payer (Ef fective 2018-Present) Name:Catherine Machado Relation to Subscriber:Spouse Name:ALEXANDER MACHADO Subscriber ID:Not on file Date of :1953 (Home) Address: [address] [place] [address] Payer ID:[id number] (NAIC) Type:[employer] Address: [phone] ACCESS Member Subscriber Plan / Payer (Ef fective 2018-Present) Name:Catherine Mahcado Relation to Subscriber:Self Name:Catherine Machado Payer ID:[id number] (NAIC) Type:[employer] Address: [address] [facility] MDCR HMO REF [facility] MEDICARE Address: [address] [address] [place] [address] MEDICARE SOLUTIONS Care Teams Maintenance Man Relationship Specialty Start Date End Date Yari Dow PA PCP - General 11/03/17 Gege Al MD Consulting Physician Pain Management 12/08/22
== END 2024-06-14 07:19 | disposition home or self-care (01) ==
LOC: ANHIMG 07:21
PROVIDERS: PCP Registered Nurse; Visit Provider Registered Nurse
DX: Z78.0 Asymptomatic menopausal state (principal); M85.852 Other specified disorders of bone density and structure, left thigh; M85.851 Other specified disorders of bone density and structure, right thigh
CPT/HCPCS: 77080